=== PATIENT | male | born 1965 | race Caucasian/White ===

== ENCOUNTER 2016-04-27 10:36 | Observation (INO) | payer BC ==
[2016-04-27] MEDS ORDERED: Aspirin Low Dose CHEW TAB* 81 MG PO ONE ×2 (10:43→14:11)
--- NOTE | 2016-04-27 11:21 | RAD ---
Indication: Chest pain. Single frontal view of the chest performed at 1112 hours was reviewed. Comparison is made with previous exam dated May 08, 2009. No mediastinal shift is noted. Heart is of normal size and configuration. Lung cid appear clear. No significant change is noted since previous exam. IMPRESSION: NO ACTIVE CARDIOPULMONARY DISEASE IS NOTED.
[2016-04-27 11:34] LABS: Hematocrit 47 % (42-52); Mean Corpuscular HGB Conc 34 g/dl (31-36); Mean Corpuscular Hemoglobin 33 pg (27-31); Mean Corpuscular Volume 96 fL (80-94); Mean Platelet Volume 8 um3 (7.4-10.4); Red Blood Count 4.87 10^6/ul (4.0-5.4); Red Cell Distribution Width 14 % (10.5-15); White Blood Count 8.1 10^3/ul (3.5-10.8)
[2016-04-27 11:49] LABS: Albumin 4.6 g/dL (3.2-5.2); BUN/Creatinine Ratio 18.1 (8-20); Calcium 9.6 mg/dL (8.6-10.3); EGFR Non-African American 115.1 (>60); Globulin 2.7 g/dL (2-4); Potassium 4.8 mmol/L (3.5-5.0); Total Bilirubin 0.4 mg/dL (0.2-1.0); Total Protein 7.3 g/dL (6.4-8.9); Troponin I 0.02 ng/mL (<0.04)
[2016-04-27] MEDS ORDERED: Albuterol HFA INHALER* 8 gm MDI INH PRN (13:15)
[2016-04-27] MEDS ORDERED: Albuterol 2.5 MG/3 ML NEB.SOL* (0.083%) INH ONE (13:16)
[2016-04-27 13:35] LABS: Magnesium 2.1 mg/dL (1.9-2.7)
[2016-04-27 13:45] LABS: TSH (Thyroid Stimulating Horm) 2.09 mcIU/mL (0.34-5.60)
[2016-04-27] MEDS: Hydrochlorothiazide TAB* 25 MG PO SCH (13:50)
[2016-04-27] MEDS: Enoxaparin(*) 40 MG/0.4 ML SYR SUBCUT SCH (13:50)
[2016-04-27] MEDS: Lisinopril TAB* 10 MG PO SCH (13:51)
[2016-04-27] MEDS ORDERED: Lisinopril/HCTZ 10/12.5(NF) TAB PO SCH (14:00)
[2016-04-27] MEDS ORDERED: Aspirin Low Dose CHEW TAB* 81 MG PO SCH ×2 (14:00→14:08)
--- NOTE | 2016-04-27 22:56 | HP ---
HISTORY AND PHYSICAL: DATE OF ADMISSION: 04/27/15 PROVIDER: Clara Reed NP ATTENDING PHYSICIAN: Dr. Heber Anders * (as dictated by Clara Reed NP). PRIMARY CARE PHYSICIAN: Dr. Marvel Rodarte. CHIEF COMPLAINT: Chest pain. HISTORY OF PRESENT ILLNESS: Mr. Cornell is a 51-year-old male patient who presented to the ED for evaluation of chest pain that he states has been occurring intermittently over the past couple of weeks. He states that the onset was spontaneous and occurred approximately 2 weeks ago. He described the pain as being in his left sternum and it feels like pressure. The pain does radiate to his left arm and last for approximately a couple of minutes up to half an hour. He says it often wakes him from sleep in the morning and could not find any difference of pattern to the pain. He was treating the pain with Pepto, which helped initially, but stopped helping since then. He states that it does get a little bit better with some deep breathing or if he props his head up; however, these techniques have not been helping as of late. Accompanying symptoms include nausea, heartburn, diaphoresis, shortness of breath, and abdominal pain and gas in the stomach. He denies any orthopnea, activity intolerance, or leg edema. He denies any fever, chills, or recent illnesses. He does report shortness of breath with exertion, which he attributes to his COPD and history of smoking. He does report chronic feeling of tingling with numbness in his feet. PAST MEDICAL HISTORY: Significant for: 1. Hypertension. 2. COPD. 3. 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 4. History of degenerative disk disease. PAST SURGICAL HISTORY: Includes: 1. C4-C5 fusion. 2. Left hip replacement in 2009. 3. Right hip replacement in 2004. HOME MEDICATIONS: Include: 1. Albuterol inhaler 2 puffs inhaled q.6 hours p.r.n. 2. Aspirin 81 mg daily. 3. Pepto-Bismol 525 mg daily p.r.n. ALLERGIES: Include PREDNISONE. The patient states that osteonecrosis of the hips occurred with the use of this medication. FAMILY HISTORY: Unobtainable. The patient is adopted and is unaware of his family history. SOCIAL HISTORY: He reports smoking since the age of 20 and smokes approximately one to one and a half packs per day. He reports occasional alcohol use, but then states that he usually drinks 1 or 2 cans of beer before dinner. He denies any illicit drug use. 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 He lives with his and two dogs. His , Remedios Cornell, is his surrogate decision maker and healthcare proxy. REVIEW OF SYSTEMS: A 14-point review of systems was completed. All pertinent positives and negatives are included in the HPI. All those not mentioned are negative. PHYSICAL EXAMINATION GENERAL: Mr. Cornell is a 51-year-old male patient who is lying back in ED stretcher. He is in no acute distress. VITAL SIGNS: Temperature 97.2, heart rate 84, respiratory rate 16, blood pressure 160/89, and O2 saturation is 95% on room air. HEENT: Head is atraumatic and normocephalic. Face is symmetrical. Pupils are equal, round, and reactive to light. Sclerae anicteric. Extraocular movements are intact. External ears and nose are normal. Oral mucosa appears moist. NECK: Neck is supple. No lymphadenopathy appreciated. No JVD noted. RESPIRATORY: Lungs are clear to auscultation. There is no accessory muscle use. CARDIAC: S1, S2 heart sounds. Regular rate and rhythm. No murmurs, rubs, or gallops. ABDOMEN: Soft, nontender, nondistended. Bowel sounds are present times all 4 quadrants. EXTREMITIES: The patient does not have any lower extremity edema. Distal pulses are 2+ bilaterally. MUSCULOSKELETAL: The patient has full range of motion. There is no clubbing or cyanosis. NEURO: Cranial nerves II through XII are grossly intact. The patient is able to move all extremities. Sensation is intact to light touch in the lower extremities. PSYCH: He is alert and oriented x3. His affect is appropriate. SKIN: Limited assessment, but skin appears to be grossly intact. DIAGNOSTIC STUDIES/LAB DATA: CBC: WBC 8.1, hemoglobin 16, hematocrit 47, platelet count 215. CMP: Sodium 134, potassium 4.8, chloride 100, carbon dioxide 26, BUN 13, creatinine 0.72, glucose 118. Hemoglobin A1c 5.4. Lactic acid 2.0, calcium 9.6, magnesium 2.1. Total bilirubin 0.4, AST 21, ALT 35, alk phos 58. Troponin 0.02. Albumin 4.6. TSH 2.09. Chest x-ray, impression reads no active cardiopulmonary disease is noted. EKG showed sinus arrhythmia. There is some minimal ST depression noted in leads II and aVF. There are no old EKGs for review. ASSESSMENT AND PLAN: Mr. Cornell is a 51-year-old male patient with a past medical history of chronic obstructive pulmonary disease, hypertension, tobacco use, and degenerative disk disease, who presents to the ED today for evaluation of chest pain. This has been ongoing for at least 2 weeks. We will admit him to OBV status to the telemetry floor. The plan is as follows: 1. Chest pain. Rule out acute coronary syndrome, admit to telemetry. The patient's BOOGIE score is approximately 2. We are unable to obtain his family history due to his being adoptive; however, given nature of his complaints and risk factors, we will have the patient undergo a stress test in the morning. He will be NPO after midnight. At this time, he is currently chest pain free. We will continue to monitor this. Additionally, we will trend his EKGs and troponins. We have put him on a heart healthy diet. We will check lipid profile in the morning. 2. History of hypertension. Here in the ED, the patient is hypertensive. He states that he was formerly on lisinopril and hydrochlorothiazide combination tablet; however, he became lost to follow up with his PCP and this has not be continued. He is open to restarting his medication while he is here. I will reorder his lisinopril/hydrochlorothiazide tablet in order to keep the patient' s blood pressure controlled so that he may undergo the stress test. 3. Chronic obstructive pulmonary disease. Continue p.r.n. albuterol. The patient does not appear to be in acute exacerbation. 4. FEN. The patient is ordered a heart-healthy diet, will be NPO after midnight. 5. DVT prophylaxis. He is ordered subcu Lovenox. 6. Code status. The patient is a full code. TIME SPENT: Time spent on this admission was approximately 60 minutes, more than half the time was spent [id number] with the patient obtaining history and physical, performing physical examination, and reviewing the plan of care. Plan of care was also reviewed with my attending, Dr. Anders, who is in agreement. CLARA REED NP CC: Dr. Rodarte * [id number]/[facility] #: [id number] BARRIE
[2016-04-28 05:01] LABS: HDL Cholesterol 57.2 mg/dL
[2016-04-28] MEDS ORDERED: Simethicone TAB* 80 MG TAB.CHEW PO ONE (06:00)
[2016-04-28] MEDS: Lisinopril TAB* 10 MG PO SCH (08:12)
[2016-04-28] MEDS: Hydrochlorothiazide TAB* 25 MG PO SCH (08:12)
[2016-04-28] MEDS ORDERED: Aspirin Low Dose CHEW TAB* 81 MG PO SCH (09:00)
[2016-04-28] MEDS ORDERED: Regadenoson* 0.4 MG/5 ML SYRINGE ONE (09:20)
[2016-04-28] MEDS ORDERED: Pantoprazole IV* 40 MG IV SCH (10:00)
[2016-04-28] MEDS: Enoxaparin(*) 40 MG/0.4 ML SYR SUBCUT SCH (14:02)
--- NOTE | 2016-04-28 14:24 | RAD ---
Edited for charges. INDICATION: Chest pain. COMPARISON: Comparison is made with a prior chest x-ray study from April 27, 2016. Technique: A single day myocardial perfusion stress study was performed. Initially the resting study was performed. The patient was given an intravenous injection of 10.8 mCi of technetium 99m tetrofosmin and and the heart was imaged in multiple projections. The patient returned later in the day and under the direction of Dr. Barragan, the patient was given intervenous injection of Lexiscan. Subsequently the patient was given intravenous injection of 24.5 mCi of technetium 99m tetrofosmin and the heart was imaged in multiple projections. Images were reconstructed in the axial, sagittal and coronal planes and in a 3- D format. FINDINGS: There appears to be normal wall motion and myocardial thickening. The left ventricular ejection fraction was calculated to be 60%. Review of the images demonstrates a moderate to large area of decreased activity on the post pharmacologic stress images in the inferior wall which appears normal on the resting set of images. In addition there is elevation of the transient ischemic dilatation ratio which is 1.25. The results of this exam were called to the patient's nurse practitioner. IMPRESSION: FINDINGS SUGGESTIVE OF A MODERATE TO LARGE AREA OF ISCHEMIC CHANGE IN THE INFERIOR WALL. ASSESSMENT: High risk. Based on imaging criteria from ACC/AHA 2002 Guideline Update for the Management of Patients With Chronic Stable Angina Table 23. Noninvasive Risk Stratification. MTDD
--- NOTE | 2016-04-28 15:31 | PN ---
Subjective Date of Service: 04/28/16 Interval History: Patient seen and examined at bedside. He denies CP but states he has been having heartburn that has improved with simethicone and pantoprazole. He denies SOB, abd pain, n/v, diaphoresis, left arm tingling/numbness. He is motivated to improve his health and is interested in ways to reduce his salt intake. He is receptive to smoking cessation teaching. Telemetry: SR 70s-80s Family History: Unchanged from Admission Social History: Unchanged from Admission Past Medical History: Unchanged from Admission Objective Active Medications: Albuterol (Ventolin Hfa Inhaler*) 2 puff INH Q6H PRN PRN Reason: WHEEZING Aspirin (Aspirin Low Dose Tab*) 81 mg PO DAILY [facility] Last Admin: 04/28/16 08:12 Dose: 81 mg Atorvastatin Calcium (Lipitor*) 40 mg PO 1700 [facility] Enoxaparin Sodium (Lovenox(*)) 40 mg SUBCUT Q24H [facility] Last Admin: 04/28/16 14:02 Dose: Not Given Hydrochlorothiazide (Hydrodiuril Tab*) 12.5 mg PO DAILY [facility] Last Admin: 04/28/16 08:12 Dose: 12.5 mg Lisinopril (Prinivil Tab*) 10 mg PO DAILY [facility] Last Admin: 04/28/16 08:12 Dose: 10 mg Pantoprazole Sodium (Protonix Iv*) 40 mg IV DAILY [facility] Last Admin: 04/28/16 14:02 Dose: Not Given Vital Signs 04/27/16 04/27/16 04/27/16 15:57 17:03 19:57 Temperature 97.9 F 98.1 F Pulse Rate 97 90 88 Respiratory 14 16 16 Rate Blood Pressure 123/69 125/80 (mmHg) O2 Sat by Pulse 95 94 93 Oximetry 04/27/16 04/28/16 04/28/16 20:00 00:18 03:36 Temperature 97.8 F Pulse Rate 90 90 Respiratory 16 20 18 Rate Blood Pressure 127/75 (mmHg) O2 Sat by Pulse 97 92 Oximetry 04/28/16 04/28/16 04:25 07:32 Temperature 97.6 F 98.1 F Pulse Rate 83 73 Respiratory 20 16 Rate Blood Pressure 134/69 146/87 (mmHg) O2 Sat by Pulse 95 97 Oximetry Oxygen Devices in Use Now: None Appearance: Male patient, lying in bed, in NAD Eyes: PERRLA Ears/Nose/Mouth/Throat: Clear Oropharnyx, Mucous Membranes Moist Neck: NL Appearance and Movements; NL JVP Respiratory: Symmetrical Chest Expansion and Respiratory Effort, Clear to Auscultation - expiratory wheezes, prolonged expiratory phse Cardiovascular: NL Sounds; No Murmurs; No JVD, RRR Abdominal: NL Sounds; No Tenderness; No Distention Extremities: No Edema Skin: No Rash or Ulcers Neurological: Alert and Oriented x 3 Lines/Tubes/Other Access: Clean, Dry and Intact Peripheral IV Nutrition: Taking PO's Result Diagrams: 04/27/16 11:19 04/27/16 11:19 Additional Lab and Data: Lab Results 04/27/16 Range/Units 11:19 WBC 8.1 (3.5-10.8) 10^3/ul RBC 4.87 (4.0-5.4) 10^6/ul Hgb 16.0 (14.0-18.0) g/dl Hct 47 (42-52) % MCV 96 H (80-94) fL MCH 33 H (27-31) pg MCHC 34 (31-36) g/dl RDW 14 (10.5-15) % Plt Count 215 (150-450) 10^3/ul MPV 8 (7.4-10.4) um3 Neut % (Auto) 73.1 (38-83) % Lymph % (Auto) 18.6 L (25-47) % [place] % (Auto) 6.5 (1-9) % Eos % (Auto) 0.7 (0-6) % Baso % (Auto) 1.1 (0-2) % Absolute Neuts (auto) 5.9 (1.5-7.7) 10^3/ul Absolute Lymphs (auto) 1.5 (1.0-4.8) 10^3/ul Absolute Monos (auto) 0.5 (0-0.8) 10^3/ul Absolute Eos (auto) 0.1 (0-0.6) 10^3/ul Absolute Basos (auto) 0.1 (0-0.2) 10^3/ul Absolute Nucleated RBC 0.01 10^3/ul Nucleated RBC % 0.1 Assess/Plan/Problems-Billing Assessment: Mr. Cornell is a 51 yo male with a PMH of HTN, COPD, DDD, and avascular necrosis who presented to the ED on 04/27/16 with intermittent chest pain x 2 weeks. - Patient Problems (1) Chest pain Code(s): R07.9 - CHEST PAIN, UNSPECIFIED Comment: Troponins negative, non-specific ST changes on EKG Nuclear medicine stress test showed concern for moderate to large area of ischemia to inferior wall. Appreciate interventional cardiology consult. Cardiac catheterization not recommended at this time. Patient recommended to minimize risk factors, such as smoking cessation, diet. Cardiology recommends addition of cardizem CD 120 mg and close follow-up with PCP. No further cardiology follow-up needed at this time, unless symptoms worsen. (2) HTN (hypertension) Code(s): I10 - ESSENTIAL (PRIMARY) HYPERTENSION Comment: SBP 120s-160s. Continue lisinopril/HCTZ. Start diltiazem CD. (3) COPD (chronic obstructive pulmonary disease) Code(s): J44.9 - CHRONIC OBSTRUCTIVE PULMONARY DISEASE, UNSPECIFIED Comment: Stable. Continue albuterol prn. (4) HLD (hyperlipidemia) Code(s): E78.5 - HYPERLIPIDEMIA, UNSPECIFIED Comment: With elevated cholesterol, trigylcerides, LDL. Start atorvastatin. Heart healthy diet - teaching provided. (5) GERD (gastroesophageal reflux disease) Code(s): K21.9 - GASTRO-ESOPHAGEAL REFLUX DISEASE WITHOUT ESOPHAGITIS Comment : Patient will benefit from GI workup as an outpatient. Continue PPI. (6) DVT prophylaxis Code(s): PZB4245 - Comment: SQ Lovenox Status and Disposition: OBV admit. D/c to home when medically stable.
[2016-04-28 16:00] VITALS: BP 126/75
[2016-04-28] MEDS ORDERED: Atorvastatin* 40 MG TAB PO SCH (17:00)
--- NOTE | 2016-04-28 19:35 | CONS ---
CARDIOLOGY CONSULT: DATE OF CONSULT: 04/28/16 INDICATION FOR THE PROCEDURE: Asked by Ms. Anna NP, the hospitalist service, to see the patient for abnormal nuclear test with presentation of chest discomfort. HISTORY OF PRESENT ILLNESS: The patient is a pleasant 51-year-old gentleman with no prior known cardiac history. Specifically, he denies any history of myocardial infarction, congestive heart failure, or significant heart rhythm disturbance. The patient was in his usual state of health a couple of weeks ago and noted his symptoms of chest discomfort started after a 7 p.m. taco dinner he had. He then went to bed that night and woke up with burning epigastric discomfort with a positive acid taste in his mouth and gas. He ended up taking antacids and it got better. He stated that at times it would radiate up toward his throat with an acid taste in his throat as mentioned earlier, but also he noticed occasionally his left arm would have some discomfort. Interestingly, it did not occur with each episode of the epigastric discomfort. A few days later, he again ate a dinner and then laid down and developed the same symptoms. 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 He could carry things up and down the stairs. He could do exertional work without provoking this symptom. The day after he had a second episode at night, he went to [facility] and then noted feeling the same type of discomfort back at work. If he got up and walked around, he stated he actually felt better. From that time on, he almost noted every night developing the symptoms waking him up in the middle of the night. This past Wednesday night until Wednesday morning, he woke up at 4 a.m. and it just would not go away, would come back despite him taking the antacids. He would initially get relief and then come back. He eventually presented to the emergency room. In the emergency room, his laboratory results had revealed a troponin of 0.02, repeated at 0.03 and 0.03. He had a hemoglobin and hematocrit of 16 and 47. In the emergency room also, he was noted to be markedly hypertensive at 173/100. He was subsequently admitted to the hospital for further workup. His EKG on admission had revealed sinus rhythm, heart rate 88, with nonspecific ST segment changes, but no definitive ST-T wave changes for ischemia. He was noted on the rhythm strip of the EKG to have a slightly accelerated rhythm in the 90s from perhaps a different atrial focus with different T-wave morphology noted. He eventually underwent a regadenoson stress test during which time there were no EKG changes of ischemia, no significant symptoms. There were no hemodynamic changes as well. The nuclear images were interpreted by the radiologist describing a moderate to large area of ischemia to the inferior wall, but interestingly, after reviewing these images with Dr. Seven Barragan, dining server board certified in Nuclear Medicine, we both agreed that there seemed to be attenuation issues on the stress image. There was not profound ischemia seen as there was clearly uptake there, which may have been managed services sales consultant slightly than the opposite wall, more related to interference. The patient noted that since he has been in the hospital and has been treated with antacids as well as pantoprazole, he has not had significant symptoms. Of note, for the past 5 years, he has not been taking his medicine for hypertension as he could not get it refilled and he only was on a baby aspirin 81 mg a day. The patient's cardiac risk factors include a 9-year history of hypertension that he is aware of. He did not know he has an elevated cholesterol. He does not have diabetes. He smokes 1 to 1-1/2 packs a day for 30 years and he was adopted and does not know his family history. PAST MEDICAL HISTORY: Includes: 1. Hypertension. 2. Chronic obstructive lung disease. 3. Avascular necrosis of both hips. 4. Degenerative disk disease. PAST SURGICAL HISTORY: Includes: 1. C4-C5 fusion. 2. Hip replacement, 2009. 3. Right hip replacement in 2004. CURRENT MEDICATIONS: In the hospital include: 1. Albuterol inhaler. 2. Aspirin 81 mg. 3. Pravastatin 40 mg a day. 4. Lovenox 40 mg subcu daily. 5. Hydrochlorothiazide 12.5 a day. 6. Lisinopril 10 mg a day. 7. Pantoprazole 40 mg IV daily. ALLERGIES: He is supposedly allergic to PREDNISONE. He developed osteonecrosis of the hips with the use of this medication. REVIEW OF SYSTEMS: As per the H and P with no additional changes. PHYSICAL EXAMINATION: When I see him now reveals vital signs most recently blood pressure 146/87, pulse is 73, respirations are 16, O2 saturation 97% on room air. Neck is supple. No increased JVP. Carotid with good upstrokes and volume without bruits. Conjunctivae are pink. Sclerae clear. Lungs reveal no accessory muscle usage. There is fair excursion. There is slight expiratory wheeze bilaterally with no active rales or rhonchi. Heart reveals no physical heaves. No palpable heaves or thrills. Heart sounds are quite distant in nature and no significant systolic or diastolic murmur. Abdomen is obese, soft , nontender, without organomegaly. Extremities are without clubbing, cyanosis, or keith pitting edema. Peripheral pulses are intact. Femoral pulse present without bruit. Neuro: The patient is alert and oriented with normal mentation. Musculoskeletal: The patient with normal gait. Psychiatric: The patient with normal affect. DIAGNOSTIC STUDIES/LAB DATA: Electrocardiogram from the emergency room as mentioned earlier revealed sinus rhythm with heart rate 83, normal NH, QRS, and QT interval with minimal nonspecific ST-T wave changes. The rhythm strip showed a slightly accelerated atrial focus, which may represent a wandering atrial pacemaker site. Repeat EKG from today revealed sinus rhythm, heart rate 70 with no significant change. Laboratory results reveal hemoglobin and hematocrit of 16 and 47 with platelet count of 215,000, white blood count 8100. Sodium 134, potassium 4.8, chloride 100, bicarb 26, BUN and creatinine of 13 and 0.7, lactic acid 2.0, hemoglobin A1c 5.4. SGOT 21, SGPT 35, and troponins were as mentioned, 0.02, 0.03, 0.03. Triglycerides 245, total cholesterol 261, LDL 155, HDL 57. TSH is 2.09. OVERALL ASSESSMENT: Alan presents with clearly atypical sounding chest discomfort that by history do not sound of an ischemic nature. He at this point in time does not have a troponin pattern suggestive of an acute coronary syndrome. His nuclear images in all honesty did not appear to be ischemic to my review or Dr. Seven Barragan's review as well. At this point in time, I believe aggressive risk factor management is paramount in aggressive treatment for gastroesophageal reflux and perhaps even possible ulcer disease. Obviously, he has not had good control of his blood pressure and at some point, an echocardiogram will be helpful just to see his overall wall thickness to see to what degree the blood pressure is not being controlled. That can easily be performed as an outpatient through his primary care doctor. Additional medications that might be helpful will be the addition of a calcium channel paty such as Cardizem to the lisinopril to help blood pressure control, but also help any potential rhythm disturbance as he appears to have the potential for chaotic atrial rhythm and he has underlying chronic obstructive pulmonary disease. This will, therefore, provide dual therapy, perhaps even triple therapy if there is some degree of coronary artery disease, although symptoms do not suggest an unstable coronary syndrome. Thank you very much for asking us to see him and at this point in time, I would not favor proceeding with cardiac catheterization. I did have a lengthy discussion with both him and his that should symptoms change and become more exertionally provoked, he should contact me and I did give him my card. In the meantime, if he had a severe episode, he should not hesitate coming back to the emergency room to have it evaluated rather than staying at home and missing an acute process. I will discuss all of this with the hospitalists involved with the case. Thank you very much for asking us to see him. CC: Marvel Rodarte MD* [id number]/[facility] #: [id number] BARRI[place]
--- NOTE | 2016-04-29 16:34 | DS ---
DISCHARGE SUMMARY: DATE OF ADMISSION: 04/27/16 DATE OF DISCHARGE: 04/28/16 PROVIDER: Clara Reed NP ATTENDING PHYSICIAN: Dr. Heber Anders *(as dictated by Clara Reed NP). PRIMARY CARE PHYSICIAN: Dr. Marvel Rodarte. CONSULTING PHYSICIAN: Dr. Evan Jacome. PRIMARY DISCHARGE DIAGNOSES: 1. Chest pain. 2. Suspect gastroesophageal reflux disease. SECONDARY DISCHARGE DIAGNOSES: 1. Hypertension. 2. Chronic obstructive pulmonary disease. 3. Avascular necrosis of the bilateral hips. 4. History of degenerative disk disease. HOME MEDICATIONS AT DISCHARGE: 1. Pepto-Bismol daily p.r.n. 2. Albuterol inhaler 2 puffs inhaled q. 6 hours p.r.n. 3. Aspirin 81 mg daily. 4. Omeprazole 20 mg daily. This is a new prescription. 5. Zestoretic 01/07.5 one tab daily. This is a new medication. The patient was previously on this medication but had stopped taking it. 6. Diltiazem CD 120 mg daily. This is a new medication. 7. Atorvastatin 40 mg daily. This is a new medication. DIAGNOSTIC TESTING DURING THIS PATIENT'S STAY: Chest x-ray on 04/27/16 shows no active cardiopulmonary disease noted. Nuclear medicine scan from 04/28/16 report, impression: Findings suggestive of [id number] area of ischemic change in the inferior wall. Assessment, high risk. Lipid profile drawn 04/28/16, triglycerides 245, cholesterol 261, LDL 155, HDL 57.2. The patient's hemoglobin A1c is 5.4. His TSH is 2.09. HOSPITAL COURSE OF STAY: For full details, please refer to the H and P provided on 04/27/16. In summary, Mr. Cornell is a 51-year-old male patient with a past medical history as stated above, who presented to the ED for evaluation of chest pain that had been occurring intermittently over a few weeks. The patient did carry risk factors of smoking, obesity, hypertension, and possible family history, although this is unable to be confirmed given his history of adoption. He was admitted to the telemetry unit with BOOGIE score of 2. His troponins remained relatively flat. The patient did report some chest pain that was alleviated with simethicone and pantoprazole while here in the hospital. His EKG showed nonspecific ST changes. He underwent a stress test, which showed concern for an area of ischemia. Dr. Jacome consulted on the patient and expressed his view that the patient had atypical chest discomfort that does not appear to be ischemic in nature. He did personally review the nuclear images and did not feel that they appear to be ischemic. He advised for aggressive risk factor management as well as aggressive treatment for gastroesophageal reflux and potentially even ulcer disease. The patient does carry risk factor for this as well as his smoking and alcohol use. This was all discussed with the patient who is in agreement and receptive to teaching regarding a healthy diet, new medications as well as smoking cessation and decreased use of alcohol. The patient was recommended to have an outpatient echocardiogram and perhaps endoscopy which he can have arranged through his PCP office. Additionally, Dr. Jacome recommended the addition of a calcium channel paty in order to help with blood pressure control and to control rhythm disturbance. This has been prescribed for the patient. I did advise him to take his 2 blood pressure medications separately with his lisinopril in the morning and his Cardizem in the nighttime in order to prevent hypotension and side effects from low blood pressure. He did verbalize understanding of this. Patient denied chest pain at the time of discharge and is receptive to his recommendations. He has been advised to follow up with his PCP as scheduled on May 04 as well as to report to the ER if his chest pain returns and if he has concern for new symptoms. CONCERNS AT DISCHARGE: Mr. Cornell is discharged to home on 04/28/16. DIET: Heart-healthy diet. ACTIVITY: As tolerated. CONDITION: Stable. DISPOSITION: To home. TIME SPENT: Time spent on this discharge was approximately 50 minutes. Again, this is only a brief summary of this patient's hospital course of stay. For full details, please refer to the full medical records. If you have any further questions or need further assistance, please feel free to contact me at . CLARA REED NP CC: Dr. Marvel Rodarte* [id number]/[facility] #: [id number] BARRIE
--- NOTE | 2016-05-18 20:14 | ED ---
Raul Mccabe Matthew, scribed for Zulma Alexandra MD on 04/27/16 at 1200 . HPI Chest Pain - HPI Summary HPI Summary: A 51 y/o male presents to the ED with intermittent chest pain since 2 weeks ago. The pain started after the patient ate spicy tacos. Initially, the pain partially relieved with sitting up and anti acids. However, the pain continued to worsen over the last 2 days, and the pain now radiates to the left arm. The pain mildly worsens with exertion. - History of Current Complaint Chief Complaint: EDChestPainROMI Time Seen by Provider: 04/27/16 11:18 Hx Obtained From: Patient Onset/Duration: Started Weeks Ago, Atraumatic, Still Present Timing: Intermittent Initial Severity: Mild Current Severity: Mild Chest Pain Radiates: Yes Chest Pain Radiates To:: Arm - LT Aggravating Factor(s): Exertion Alleviating Factor(s): Nothing Associated Signs and Symptoms: Positive: Chest Pain, Cough - Allergy/Home Medications Allergies/Adverse Reactions: Allergies Allergy/AdvReac Type Severity Reaction Status Date / Time Prednisone AdvReac Severe See Comment Verified 04/27/16 11:05 Home Medications: Home Medications Albuterol HFA INHALER* [Ventolin HFA Inhaler*] 2 puff INH Q6H PRN 04/27/16 [ History Confirmed 05/04/16] Aspirin Low Dose CHEW TAB* [Aspirin Low Dose TAB*] 81 mg PO DAILY 04/27/16 [ History Confirmed 05/04/16] Bismuth Subsalicylate [Pepto-Bismol Max Strength] 525 mg PO DAILY PRN 04/27/16 [ History Confirmed 05/04/16] PMH/Surg Hx/FS Hx/Imm Hx Cardiovascular History: Reports: Hx Hypercholesterolemia, Hx Hypertension Infectious Disease History: No Infectious Disease History: Denies: Traveled Outside the [place] in Last 30 Days - Family History Known Family History: Positive: Unknown - The patient is adopted - Social History Alcohol Use: Weekly Substance Use Type: Reports: None Smoking Status (MU): Heavy Every Day Tobacco Smoker Review of Systems Constitutional: Negative Eyes: Negative ENT: Negative Positive: Chest Pain Positive: Cough Gastrointestinal: Negative Genitourinary: Negative Musculoskeletal: Negative Skin: Negative Neurological: Negative Psychological: Normal All Other Systems Reviewed And Are Negative: Yes Physical Exam Triage Information Reviewed: Yes Vital Signs On Initial Exam: Initial Vitals Temp Pulse Resp BP Pulse Ox 97.2 F 83 16 168/89 97 04/27/16 11:01 04/27/16 11:01 04/27/16 11:01 04/27/16 11:01 04/27/16 11:01 Vital Signs Reviewed: Yes Appearance: Positive: Well-Appearing, No Pain Distress Skin: Positive: Warm, Skin Color Reflects Adequate Perfusion, Dry Eyes: Positive: EOMI, RISA ENT: Positive: Normal ENT inspection Neck: Positive: Supple, Nontender Respiratory/Lung Sounds: Positive: Breath Sounds Present, Wheezes Cardiovascular: Positive: RRR. Negative: Murmur, Rub Abdomen Description: Positive: Nontender, Soft Bowel Sounds: Positive: Present Musculoskeletal: Positive: Normal, Strength/ROM Intact Neurological: Positive: Normal, Sensory/Motor Intact, Alert, Oriented to Person Place, Time, CN Intact II-III Psychiatric: Positive: Normal, Affect/Mood Appropriate - [place] Coma Scale Coma Scale Total: 15 Diagnostics - Vital Signs Vital Signs Temp Pulse Resp BP Pulse Ox 04/27/16 11:01 97.2 F 83 16 168/89 97 - Laboratory Lab Results: Lab Results 04/27/16 Range/Units 11:19 WBC 8.1 (3.5-10.8) 10^3/ul RBC 4.87 (4.0-5.4) 10^6/ul Hgb 16.0 (14.0-18.0) g/dl Hct 47 (42-52) % MCV 96 H (80-94) fL MCH 33 H (27-31) pg MCHC 34 (31-36) g/dl RDW 14 (10.5-15) % Plt Count 215 (150-450) 10^3/ul MPV 8 (7.4-10.4) um3 Neut % (Auto) 73.1 (38-83) % Lymph % (Auto) 18.6 L (25-47) % [place] % (Auto) 6.5 (1-9) % Eos % (Auto) 0.7 (0-6) % Baso % (Auto) 1.1 (0-2) % Absolute Neuts (auto) 5.9 (1.5-7.7) 10^3/ul Absolute Lymphs (auto) 1.5 (1.0-4.8) 10^3/ul Absolute Monos (auto) 0.5 (0-0.8) 10^3/ul Absolute Eos (auto) 0.1 (0-0.6) 10^3/ul Absolute Basos (auto) 0.1 (0-0.2) 10^3/ul Absolute Nucleated RBC 0.01 10^3/ul Nucleated RBC % 0.1 Result Diagrams: 04/27/16 11:19 04/27/16 11:19 Lab Statement: Any lab studies that have been ordered have been reviewed, and results considered in the medical decision making process. - Radiology CXR Xray Interpretation: No Acute Changes Radiology Interpretation Completed By: Radiologist - EKG 10:38 Cardiac Rate: NL - 83 bpm EKG Rhythm: Sinus Rhythm Chest Pain Course/Dx - Diagnoses Provider Diagnoses: Chest pain - Provider Notifications Discussed Care Of Patient With: Dr. Arias (Hospitalist) at 12:04 -- Notified of patient's history and will admit the pateint. Discharge - Discharge Plan Condition: Stable Disposition: ADMITTED TO [facility] documentation as recorded by the Raul ahn Matthew accurately reflects the service I personally performed and the decisions made by , Zulma Alexandra MD.
== END 2016-04-28 17:19 | disposition home or self-care (01) ==
LOC: ED 10:36 → MEDTELE 12:02
PROVIDERS: ADMIT Hospitalist; ATTEND Internal Medicine
DX: R07.9 Chest pain, unspecified (principal); I10 Essential (primary) hypertension; J44.9 Chronic obstructive pulmonary disease, unspecified; I49.9 Cardiac arrhythmia, unspecified; R06.02 Shortness of breath; K21.9 Gastro-esophageal reflux disease without esophagitis; E78.5 Hyperlipidemia, unspecified; Z79.899 Other long term (current) drug therapy; Z88.8 Allergy status to other drugs, medicaments and biological substances; F17.210 Nicotine dependence, cigarettes, uncomplicated
CPT/HCPCS: 36415; 71010; 78452; 80053; 80061; 83036; 83605; 83735; 84443; 84484; 85025; 93005; 93017; 94760; 99282; 99406; A9270-GY; A9502; G0378; J1650; J2785

== ENCOUNTER 2016-05-04 10:22 | Inpatient (IN) | payer BC ==
[2016-05-04] MEDS ORDERED: Aspirin Low Dose CHEW TAB* 81 MG PO ONE (11:08)
[2016-05-04 11:29] LABS: Hematocrit 47 % (42-52); Hemoglobin 16.2 g/dl (14.0-18.0); Mean Corpuscular HGB Conc 34 g/dl (31-36); Mean Corpuscular Hemoglobin 33 pg (27-31); Mean Corpuscular Volume 95 fL (80-94); Mean Platelet Volume 8 um3 (7.4-10.4); Red Blood Count 4.96 10^6/ul (4.0-5.4); Red Cell Distribution Width 13 % (10.5-15); White Blood Count 10.6 10^3/ul (3.5-10.8)
--- NOTE | 2016-05-04 11:35 | RAD ---
Indication: Chest pain, shortness of breath. Single frontal view of the chest performed at 1115 hours was reviewed. Comparison is made with previous exam dated April 27, 2016. No mediastinal shift is noted. Heart is of normal size and configuration. Lung cdi appear clear. No changes noted since prior exam. IMPRESSION: NO ACTIVE CARDIOPULMONARY DISEASE IS NOTED.
--- NOTE | 2016-05-04 11:35 | ED ---
HPI Chest Pain - HPI Summary HPI Summary: 51 M presents with chest pain since this morning. He has had intermittent chest pain for a week. Today the pain last longer and was more intense. He admits to shortness of breath and radiation down the left arm when the pain was the most intense. He is still currently having central chest pain but the SOB and radiation of the pain has disappeared. He was admitted last week an a stress test and nuclear scan was performed. He denies any abdominal pain, acid reflux, nausea, or vomiting. He was sent home with cholesterol, bp, and GERD medication. His pain is the same as last week when he was admitted. - History of Current Complaint Chief Complaint: EDChestWallPain Time Seen by Provider: 05/04/16 11:21 Pain Intensity: 8 - Additional Pertinent History Primary Care Physician: LIZANDRO - Allergy/Home Medications Allergies/Adverse Reactions: Allergies Allergy/AdvReac Type Severity Reaction Status Date / Time Prednisone AdvReac Severe See Comment Verified 04/27/16 11:05 PMH/Surg Hx/FS Hx/Imm Hx Endocrine/Hematology History: Denies: Hx Diabetes Cardiovascular History: Reports: Hx Angina, Hx Hypertension Denies: Hx Coronary Artery Disease, Hx Hypercholesterolemia, Hx Myocardial Infarction, Hx Valvular Heart Disease Respiratory History: Reports: Hx Chronic Obstructive Pulmonary Disease (COPD) Denies: Hx Asthma - Surgical History Surgery Procedure, Year, and Place: Right hip replacement Infectious Disease History: No Infectious Disease History: Denies: Traveled Outside the [place] in Last 30 Days - Family History Known Family History: Positive: Unknown - adopted - Social History Alcohol Use: Daily Alcohol Amount: 2-3 drinks weeks nights, more on the week ends Substance Use Type: Reports: None Smoking Status (MU): Heavy Every Day Tobacco Smoker Review of Systems Negative: Fever Positive: Chest Pain Positive: Shortness Of Breath, Cough Negative: Abdominal Pain, Vomiting, Nausea Negative: Weakness All Other Systems Reviewed And Are Negative: Yes Physical Exam Triage Information Reviewed: Yes Vital Signs On Initial Exam: Initial Vitals Temp Pulse Resp BP Pulse Ox 96.3 F 94 20 167/92 94 05/04/16 10:23 05/04/16 10:23 05/04/16 10:23 05/04/16 10:23 05/04/16 10:23 Vital Signs Reviewed: Yes Appearance: Positive: Well-Appearing Skin: Positive: Warm, Dry. Negative: Diaphoretic Head/Face: Positive: Normal Head/Face Inspection Eyes: Positive: Normal, Conjunctiva Clear ENT: Positive: Normal ENT inspection, Pharynx normal, TMs normal Respiratory/Lung Sounds: Positive: Clear to Auscultation, Breath Sounds Present , Other - no reproducible test pain Cardiovascular: Positive: Normal, RRR Abdomen Description: Positive: Nontender, Soft Bowel Sounds: Positive: Present - [place] Coma Scale Coma Scale Total: 15 Diagnostics - Vital Signs Vital Signs Temp Pulse Resp BP Pulse Ox 05/04/16 11:00 88 15 138/74 96 05/04/16 10:52 88 95 05/04/16 10:49 121/71 05/04/16 10:23 96.3 F 94 20 167/92 94 - Laboratory Lab Results: Lab Results 05/04/16 Range/Units 11:10 WBC 10.6 (3.5-10.8) 10^3/ul RBC 4.96 (4.0-5.4) 10^6/ul Hgb 16.2 (14.0-18.0) g/dl Hct 47 (42-52) % MCV 95 H (80-94) fL MCH 33 H (27-31) pg MCHC 34 (31-36) g/dl RDW 13 (10.5-15) % Plt Count 237 (150-450) 10^3/ul MPV 8 (7.4-10.4) um3 Neut % (Auto) 74.0 (38-83) % Lymph % (Auto) 15.8 L (25-47) % [place] % (Auto) 8.8 (1-9) % Eos % (Auto) 0.6 (0-6) % Baso % (Auto) 0.8 (0-2) % Absolute Neuts (auto) 7.8 H (1.5-7.7) 10^3/ul Absolute Lymphs (auto) 1.7 (1.0-4.8) 10^3/ul Absolute Monos (auto) 0.9 H (0-0.8) 10^3/ul Absolute Eos (auto) 0.1 (0-0.6) 10^3/ul Absolute Basos (auto) 0.1 (0-0.2) 10^3/ul Absolute Nucleated RBC 0 10^3/ul Nucleated RBC % 0 Result Diagrams: 05/04/16 11:10 05/04/16 11:10 Lab Statement: Any lab studies that have been ordered have been reviewed, and results considered in the medical decision making process. - Radiology chest Xray Interpretation: No Acute Changes Radiology Interpretation Completed By: Radiologist - EKG No standard instances Cardiac Rate: NL EKG Rhythm: Sinus Rhythm ST Segment: Normal Ectopy: None EKG Comparison: No Significant Change Re-Evaluation - Re-Evaluation First Eval Re-Evaluation Time: 12:58 Change: Improved Comment: patient pain is improved Chest Pain Course/Dx - Course Course Of Treatment: 51M presents with intermittent chest pain for a week. started 2am today with SOB and left arm pain. pain lasted longer today and was more intense. still currently having chest pain just not as intense as earlier today. says pain is the same as when was admitted last week. chest pain noreproducible on exam, improved with ASA and nitro, EKG normal, troponin and lactic elevated, gave fluids, hospitalist will admit, 2nd troponin 3 - Chest Pain Differential Diagnosis/HQI/PQRI: Acute [place], ACS, CHF, Lower Respiratory Infection - Diagnoses Provider Diagnoses: Chest pain, HTN (hypertension), COPD (chronic obstructive pulmonary disease) - Provider Notifications Discussed Care Of Patient With: dr gordon Time Discussed With Above Provider: 11:53 - get 2nd troponin Discharge - Discharge Plan Condition: Stable Disposition: ADMITTED TO [facility]
[2016-05-04 11:44] LABS: Albumin 4.8 g/dL (3.2-5.2); BUN/Creatinine Ratio 19.6 (8-20); Calcium 9.7 mg/dL (8.6-10.3); EGFR African American 104.9 (>60); EGFR Non-African American 81.6 (>60); Globulin 2.7 g/dL (2-4); Potassium 4.7 mmol/L (3.5-5.0); Total Protein 7.5 g/dL (6.4-8.9)
[2016-05-04 11:59] LABS: Troponin I 1.74 ng/mL (<0.04)
[2016-05-04] MEDS ORDERED: Nitroglycerin TAB 0.4 MG* 0.4 MG TAB SL ONE ×2 (12:09→14:59)
[2016-05-04 12:21] LABS: Total Bilirubin 0.6 mg/dL (0.2-1.0)
[2016-05-04] MEDS: NS 0.9% 1000 ML* 2,000 ML IV ONE ×2 (12:36→13:58)
[2016-05-04] MEDS ORDERED: Metoprolol Tartrate TAB* 25 MG PO ONE (15:00)
[2016-05-04] MEDS ORDERED: Atorvastatin* 80 MG TAB PO ONE ×2 (15:12→20:30)
[2016-05-04] MEDS ORDERED: Heparin DRIP 25,000 UNITS(*) 25,000 UNITS/500 ML BAG IVPB SCH (15:15)
[2016-05-04] MEDS ORDERED: Albuterol/Ipratropium NEB.SOL* Albuterol 2.5 MG/Ipratropium 0.5 MG 3 ML INH PRN (15:20)
[2016-05-04] MEDS ORDERED: Acetaminophen TAB* 325 MG PO PRN (15:21)
[2016-05-04] MEDS ORDERED: Nicotine Inhaler* 10 MG AMP INH PRN (15:23)
[2016-05-04] MEDS ORDERED: Heparin VIAL(*) 5000 UNITS/ML VIAL (FIVE THOUSAND) IV SCH (16:00)
[2016-05-04] MEDS ORDERED: Enoxaparin(*) 100 MG/ML SYR SUBCUT ONE (18:00)
[2016-05-04] MEDS: Diltiazem CD CAP* 120 MG PO SCH (18:27)
[2016-05-04] MEDS ORDERED: Nicotine PATCH 21 MG/24 HR* PATCH ONE (18:31)
--- NOTE | 2016-05-04 19:26 | HP ---
ADMISSION HISTORY AND PHYSICAL: DATE OF ADMISSION: 05/04/16 PRIMARY CARE PROVIDER: Dr. Rodarte. HEALTHCARE PROXY: His , Saida. CODE STATUS: Full, discussed with the patient. CHIEF COMPLAINT: Chest pain. SOURCE OF INFORMATION: History obtained from interview with the patient, his , as well as review of past medical records. RELIABILITY: Good. HISTORY OF PRESENT ILLNESS: This is a 51-year-old man, recent hospital stay at [facility] from 04/27/16 to 04/28/16, presenting with 2 weeks of chest pain, found with a high- risk adenosine stress test with nuclear imaging, re-interpreted by cardiology team to be less likely high risk with chest pain thought secondary to GERD symptoms in the setting of negative cardiac enzymes and nonischemic EKG. The patient had been experiencing 2 weeks of chest pain prior to his previous stay and chest pain had continued since his discharge on the , most commonly occurring in the managed care director, typically would last at most for 5 minutes occurring many times over an hour and a half, not worse with exertion , but better with sitting up or drinking milk. The night of presentation, he woke up around 3 a.m. with worsening chest pain that was described as substernal chest pain or pressure, associated with feeling of lightheadedness, nausea, and gagging that lasted about an hour, not associated with palpitations , loss of consciousness. He presented to the emergency room where he was found to have an elevated troponin and hospitalist service was consulted for admission. PAST MEDICAL HISTORY: Hypertension, hyperlipidemia, COPD, history of avascular necrosis in bilateral hips while on steroids, degenerative joint disease, C4-C5 fusion in 2001, hip replacement in 2009, right hip replacement in 2004. MEDICATIONS: Unchanged since recent discharge on the include: 1. Albuterol inhaler 2 puffs every 6 hours as needed. 2. Aspirin 81 mg daily. 3. Omeprazole 20 mg daily. 4. Zestoretic 10/12.5 mg daily. 5. Diltiazem CD 120 mg daily. 6. Atorvastatin 40 mg daily. ALLERGIES: Listed to PREDNISONE in the setting of avascular necrosis. FAMILY HISTORY: He is adopted and unknown. SOCIAL HISTORY: Shz-ljk-v-half packs per day x30 years, still active smoker. History of moderate alcohol. No illicit's. REVIEW OF SYSTEMS: As per HPI. Otherwise, all other systems negative. PHYSICAL EXAMINATION GENERAL: Sitting up in bed, interactive, pleasant, in no apparent distress. VITAL SIGNS: When seen by this author 149/62, heart rate 85, T-max 96.3, 96% on room air. HEENT: Oropharynx is clear. Moist mucous membranes. Sclerae anicteric. NECK: Non-elevated JVD. No lymphadenopathy. No supraclavicular or cervical lymphadenopathy. LUNGS: Have symmetric airway expansion with diffuse wheeze throughout. HEART: He has distant heart sounds. Regular rate and rhythm. Positive S1 and S2. ABDOMEN: Soft, nontender, nondistended. EXTREMITIES: Warm and well perfused. No clubbing, cyanosis, or edema. NEUROLOGIC: He is alert and oriented x3. His cranial nerves are intact. DIAGNOSTIC STUDIES/LAB DATA: Labs reviewed: Notable for lactic acid 2.2. Troponin I 1.74 increasing to 3.07. BNP of 39. White blood cell count 10.6, platelets 237. BUN 19, creatinine 0.97. Data reviewed: Chest x-ray, impression: "No active cardiopulmonary disease." EKG: Normal sinus rhythm, ventricular rate of 80, normal limit axis and intervals, good R-wave progression, nonpathologic Q waves in III and aVF, approximately 1-mm ST depression in V4 and V5. ASSESSMENT AND PLAN: This is a 51-year-old man, past medical history of hypertension, hyperlipidemia, active tobacco use with a recent admission for chest pain, found with an abnormal stress test returning with worsening chest pain in the setting of elevated cardiac enzymes, suspicious for diagnosis of non -ST elevation myocardial infarction. 1. Non-ST elevation myocardial infarction: Cardiac consultation. Placed on heparin with heparin drip. Aspirin in the emergency room. Currently, 1/10 chest pain. We will deliver sublingual nitro now. If not chest pain free, we will deliver longer-acting nitro product in the setting of nitro paste. Increase statin from 40 to 80 mg. Metoprolol 25 mg now. N.p.o. for likely cath tomorrow. Continue to trend troponins. EKG with next troponin at 5. Discussed care with Dr. Barragan. 2. Elevated lactic acid in the setting of non-ST elevation myocardial infarction: Received normal saline. Recheck lactic acid with next blood draw at 8. 3. Chronic obstructive pulmonary disease with active wheezes: The patient __ purported allergy___ to oral steroids. Started DuoNebs with Dulera as well as Spiriva. 4. Hypertension: Holding hydrochlorothiazide. Continue lisinopril alone in addition to metoprolol. 5. Hyperlipidemia: High-dose statin. 6. Nicotine or tobacco abuse: Nicotine inhaler available. 7. DVT prophylaxis: Heparin drip. 8. Code status is full. CC: Dr. Rodarte* [id number]/[facility] #: [id number] [facility]
--- NOTE | 2016-05-04 19:51 | CONS ---
INTERVENTIONAL CARDIOLOGY CONSULT NOTE: DATE OF CONSULT: 05/04/16 PRIMARY CARE PHYSICIAN: Dr. Rodarte. HISTORY OF PRESENT ILLNESS: A 51-year-old male recently hospitalized with chest pain, readmitted with recurrence of pain and abnormal troponins. He is a good historian; however, has a history of fairly atypical chest pain for several weeks. He was hospitalized here on the , had flat troponins at 0.02, 0.03, 0.03. Stress imaging was read as showing inferior ischemia but on subsequent review was thought to be artifactual. He had a low BOOGIE score of 2, he was discharged on medical therapy. Since discharge his acid reflux symptoms have resolved but he has continued to have episodes of precordial chest discomfort, which varied from being sharp and stabbing to when more severe, more like a gripping type sensation in the center of his chest, which radiates into his left arm. With it, he becomes short of breath. Interestingly, these episodes are typically in the classification clerk hours but not during the day and are not precipitated by physical activity. Yesterday to this morning, he had a 7-hour episode of chest discomfort off and on that resolved in the ER. He has not noticed any change in exercise tolerance, he has never had bleeding issues. PAST MEDICAL HISTORY: Hypertension, COPD on inhalers. PREHOSPITAL MEDICATIONS: 1. Prilosec 20 mg daily. 2. Lisinopril/hydrochlorothiazide 10/12.5 mg daily. 3. Cardizem CD 120 mg daily. 4. Lipitor 40 daily. 5. Aspirin 81 mg daily. 6. Ventolin 2 puffs q.6 p.r.n. REVIEW OF SYSTEMS: General: No change in exercise tolerance, no fever. [employer]CRA[employer]INE [employer]IC: No history of TIA or CVA. GI: No peptic ulcer disease or bleeding, GERD symptoms have resolved with Prilosec. Circulatory: No claudication. Remainder all negative. PHYSICAL EXAM: He is pain free and comfortable, he is overweight, BP 166/82, pulse in the 70s to 80s, sinus rhythm. Lungs: Clear to percussion but has prolonged expiratory phase with expiratory wheezing bilaterally. JVP is not visible. Carotids are normal without bruits. HEENT: Unremarkable. There is no thyromegaly. Cardiac Exam: [place] and RV not palpable, normal heart sounds, no gallop, murmur, or rub. Abdomen is obese, nontender. He has bowel sounds, aorta is not palpable, nor is liver. He has no ascites or tenderness. Femoral pulses are palpable as are radials and pedals. He has no cyanosis, clubbing or edema. Skin is warm and perfused. DIAGNOSTIC STUDIES/LAB DATA: Chest x-ray is unremarkable to my review. EKG shows poor R-wave progression. CBC is unremarkable. BMP is notable only for sodium of 129. His cholesterol is high at 261 with triglycerides 245; LDL 155; HDL 57, before Lipitor 40. Troponin 1.74, 3.07, not yet peaked. IMPRESSION: Troponin positive acute coronary syndrome/non-ST elevation infarct. His symptoms are somewhat atypical, there was concern that his stress test was false positive. However, he has failed a trial of medical therapy with recurrence of chest discomfort and a small troponin rise. He needs a coronary angiogram which we discussed. We reviewed possible need for stenting, dual antiplatelet therapy, procedure risks, etc. Cath is planned for the morning. CC: Dr. Jacome* [id number]/[facility] #: [id number] MTDJaelyn
[2016-05-05 05:59] LABS: Hematocrit 43 % (42-52); Hemoglobin 14.6 g/dl (14.0-18.0); Mean Corpuscular HGB Conc 34 g/dl (31-36); Mean Corpuscular Hemoglobin 33 pg (27-31); Mean Corpuscular Volume 96 fL (80-94); Mean Platelet Volume 8 um3 (7.4-10.4); Red Blood Count 4.46 10^6/ul (4.0-5.4); Red Cell Distribution Width 13 % (10.5-15); White Blood Count 8.7 10^3/ul (3.5-10.8)
[2016-05-05 06:22] LABS: BUN/Creatinine Ratio 21.7 (8-20); Calcium 9.2 mg/dL (8.6-10.3); EGFR African American 125.6 (>60); EGFR Non-African American 97.7 (>60); Potassium 4.3 mmol/L (3.5-5.0)
[2016-05-05 06:24] LABS: Troponin I 2.82 ng/mL (<0.04)
[2016-05-05] MEDS ORDERED: NS 0.9% 1000 ML* 1,000 ML IV SCH ×2 (07:00→14:45)
[2016-05-05] MEDS ORDERED: Lisinopril TAB* 10 MG PO SCH (09:00)
[2016-05-05] MEDS ORDERED: Spiriva Inhaler DEVICE* 1 EACH DEVICE INH ONE (09:00)
[2016-05-05] MEDS ORDERED: Aspirin EC Low Dose* 81 MG TAB.EC PO SCH (09:00)
[2016-05-05] MEDS: Aspirin Low Dose CHEW TAB* 81 MG PO SCH (09:29)
[2016-05-05] MEDS ORDERED: fentaNYL* 50 MCG/ML 2 ML VIAL (100 MCG VIAL) ONE ×4 (09:50→14:08)
[2016-05-05] MEDS ORDERED: Midazolam* 1 MG/ML 5 ML VIAL (5 MG) ONE ×2 (09:50→12:37)
[2016-05-05] MEDS ORDERED: VERAPAMIL 2.5 MG/ML 4 ML VIAL ONE ×2 (09:51→12:37)
[2016-05-05] MEDS ORDERED: Heparin 2 UNITS/ML IVPREMIX* 3,000 ML IV ONE ×2 (09:51→12:37)
[2016-05-05] MEDS ORDERED: Lidocaine 1% INJ* 10 MG/ML 30 ML SDV ONE ×2 (09:51→12:37)
[2016-05-05] MEDS ORDERED: nitroGLYCERIN DRIP* 250 ML ONE ×2 (09:51→12:37)
[2016-05-05] MEDS ORDERED: Heparin(*) 1000 UNIT/ML 10 ML VIAL CATH LAB IV ONE ×2 (09:51→12:37)
[2016-05-05] MEDS ORDERED: Iohexol 350 (CONTRAST) 200 ML MDV IV ONE ×3 (09:51→13:54)
[2016-05-05] MEDS ORDERED: Heparin DRIP 25,000 UNITS(*) 25,000 UNITS/500 ML BAG ONE (10:21)
[2016-05-05] MEDS: Tiotropium CAP.INH* CAP.INH/18 MCG (USE ORDER SET !) INH SCH (10:48)
[2016-05-05] MEDS ORDERED: Ticagrelor* 90 MG TAB PO ONE (13:25)
[2016-05-05] MEDS: Omeprazole CAP* 20 MG PO SCH (15:16)
[2016-05-05] MEDS: Diltiazem CD CAP* 120 MG PO SCH (15:16)
[2016-05-05] MEDS: Nicotine PATCH 21 MG/24 HR* PATCH TRANSDERM SCH (15:20)
[2016-05-05] MEDS: Atorvastatin* 80 MG TAB PO SCH (16:56)
[2016-05-05] MEDS: Nitroglycerin TAB 0.4 MG* 0.4 MG TAB SL PRN (16:56)
--- NOTE | 2016-05-05 17:03 | PN ---
Subjective Date of Service: 05/05/16 Interval History: Seen and examined in ICU after [facility] Reporting 4-5/10 SSCP similar to what he was experiencing on arrival He reports no pain on arrival to ICU with nursing indicates he has been reporting at least 3/10 since arrival Pt without any other complaints Objective Active Medications: Acetaminophen (Tylenol Tab*) 650 mg PO Q4H PRN PRN Reason: FEVER/PAIN Albuterol/Ipratropium (Duoneb Neb.Radha*) 1 neb INH Q6H PRN PRN Reason: SOB/WHEEZING Last Admin: 05/04/16 20:07 Dose: 1 neb Aspirin (Aspirin Low Dose Tab*) 81 mg PO DAILY [facility] Last Admin: 05/05/16 09:29 Dose: 81 mg Atorvastatin Calcium (Lipitor*) 80 mg PO 1700 [facility] Last Admin: 05/05/16 16:56 Dose: 80 mg Diltiazem HCl (Cardizem Cd Cap*) 120 mg PO DAILY [facility] Last Admin: 05/05/16 15:16 Dose: Not Given Sodium Chloride (Ns 0.9% 1000 Ml*) 1,000 mls @ 100 mls/hr IV .per rate [facility] Stop: 05/05/16 19:00 Last Admin: 05/05/16 15:22 Dose: 100 mls/hr Lisinopril (Prinivil Tab*) 10 mg PO DAILY [facility] Last Admin: 05/05/16 15:16 Dose: Not Given Nicotine (Nicotine Inhaler*) 10 mg INH Q2H PRN PRN Reason: CRAVING Nicotine (Nicotine Patch 21 Mg/24 Hr*) 1 patch TRANSDERM DAILY@0800 [facility] Last Admin: 05/05/16 15:20 Dose: 1 patch Nitroglycerin (Nitroglycerin Tab 0.4 Mg*) 0.4 mg SL Q5M PRN PRN Reason: ANGINA Last Admin: 05/05/16 16:56 Dose: 0.4 mg Omeprazole (Prilosec Cap*) 20 mg PO DAILY [facility] Last Admin: 05/05/16 15:16 Dose: Not Given Pharmacy Profile Note (Nicotine Patch Removal Note*) 1 note PATCH OFF 2100 [facility] Ticagrelor (Brilinta*) 90 mg PO BID [facility] Tiotropium [place] (Spiriva Cap.Inh*) 1 cap INH DAILY [facility] Last Admin: 05/05/16 10:48 Dose: Not Given Vital Signs 05/04/16 05/04/16 05/04/16 17:25 20:00 20:39 Temperature 98.1 F Pulse Rate 86 83 Respiratory 18 16 16 Rate Blood Pressure 90/63 (mmHg) O2 Sat by Pulse 97 96 Oximetry 05/05/16 05/05/16 05/05/16 00:06 03:50 07:29 Temperature 97.1 F 96.9 F 98.0 F Pulse Rate 72 66 71 Respiratory 16 16 16 Rate Blood Pressure 124/67 101/56 128/76 (mmHg) O2 Sat by Pulse 96 97 94 Oximetry 05/05/16 05/05/16 05/05/16 08:00 11:06 11:30 Temperature Pulse Rate 65 61 Respiratory 16 15 15 Rate Blood Pressure 130/69 (mmHg) O2 Sat by Pulse 99 98 Oximetry 05/05/16 05/05/16 05/05/16 12:00 12:29 12:30 Temperature Pulse Rate 63 72 Respiratory 14 16 Rate Blood Pressure 117/76 127/75 (mmHg) O2 Sat by Pulse 100 99 Oximetry 05/05/16 05/05/16 05/05/16 14:35 14:39 14:45 Temperature 98.4 F Pulse Rate 68 76 72 Respiratory 17 16 17 Rate Blood Pressure 168/76 163/96 (mmHg) O2 Sat by Pulse 100 98 98 Oximetry 05/05/16 05/05/16 05/05/16 15:00 15:15 15:30 Temperature Pulse Rate 66 68 78 Respiratory 16 18 17 Rate Blood Pressure 168/76 158/108 170/91 (mmHg) O2 Sat by Pulse 98 100 94 Oximetry 05/05/16 05/05/16 16:00 16:30 Temperature 99.4 F Pulse Rate 85 88 Respiratory 19 17 Rate Blood Pressure 167/82 160/80 (mmHg) O2 Sat by Pulse 94 93 Oximetry Oxygen Devices in Use Now: None Appearance: NAD Eyes: No Scleral Icterus, PERRLA Ears/Nose/Mouth/Throat: Clear Oropharnyx, Mucous Membranes Moist Neck: NL Appearance and Movements; NL JVP, Trachea Midline Respiratory: Symmetrical Chest Expansion and Respiratory Effort, - - wheeze CARLOS ENRIQUE Cardiovascular: NL Sounds; No Murmurs; No JVD, RRR Abdominal: NL Sounds; No Tenderness; No Distention, No Hepatosplenomegaly Lymphatic: No Cervical Adenopathy Extremities: No Edema, - - right radial access under pressure Neurological: Alert and Oriented x 3 Result Diagrams: 05/05/16 05:36 05/05/16 05:36 Additional Lab and Data: Lab Results 05/04/16 Range/Units 11:10 WBC 10.6 (3.5-10.8) 10^3/ul RBC 4.96 (4.0-5.4) 10^6/ul Hgb 16.2 (14.0-18.0) g/dl Hct 47 (42-52) % MCV 95 H (80-94) fL MCH 33 H (27-31) pg MCHC 34 (31-36) g/dl RDW 13 (10.5-15) % Plt Count 237 (150-450) 10^3/ul MPV 8 (7.4-10.4) um3 Neut % (Auto) 74.0 (38-83) % Lymph % (Auto) 15.8 L (25-47) % [place] % (Auto) 8.8 (1-9) % Eos % (Auto) 0.6 (0-6) % Baso % (Auto) 0.8 (0-2) % Absolute Neuts (auto) 7.8 H (1.5-7.7) 10^3/ul Absolute Lymphs (auto) 1.7 (1.0-4.8) 10^3/ul Absolute Monos (auto) 0.9 H (0-0.8) 10^3/ul Absolute Eos (auto) 0.1 (0-0.6) 10^3/ul Absolute Basos (auto) 0.1 (0-0.2) 10^3/ul Absolute Nucleated RBC 0 10^3/ul Nucleated RBC % 0 Assess/Plan/Problems-Billing Assessment: - Patient Problems (1) NSTEMI (non-ST elevated myocardial infarction) Comment: s/p LHC, PCI to RCA for 80% stenosis not thought to be source of pain at rest but possibly source of defect on stress test Post-lateral cirx with 95% but dissection when attempting PCI. Suspect source of chest pain ICU troponins in setting of dissection SL nitro now and repeat EKG Brilinta and ASA (2) COPD (chronic obstructive pulmonary disease) Comment: paulie Carballo duonebs PRN (3) HLD (hyperlipidemia) Comment: atorvastatin (4) HTN (hypertension) Comment: Metoprolol 25 BID lisinopril 10mg (5) DVT prophylaxis Comment: SCD
[2016-05-05] MEDS ORDERED: Metoprolol Tartrate TAB* 25 MG PO SCH (17:06)
[2016-05-05] MEDS: Nitroglycerin 2% OINT* 1 GM PAK TOPICAL SCH (17:25)
[2016-05-05] MEDS: Mometasone/Formoter 200/5 MDI INH SCH (21:06)
[2016-05-05 21:18] LABS: Troponin I 2.39 ng/mL (<0.04)
[2016-05-05] MEDS: Ticagrelor* 90 MG TAB PO SCH (21:18)
[2016-05-05] MEDS: Nicotine Patch Removal NOTE PATCH OFF SCH (21:19)
[2016-05-06] MEDS: Nitroglycerin TAB 0.4 MG* 0.4 MG TAB SL PRN (02:36)
[2016-05-06] MEDS: Nicotine Patch Removal NOTE PATCH OFF SCH ×2 (02:52→21:48)
[2016-05-06] MEDS: Nitroglycerin 2% OINT* 1 GM PAK TOPICAL SCH ×2 (02:54→13:40)
[2016-05-06 03:32] LABS: Troponin I 2.79 ng/mL (<0.04)
[2016-05-06 05:32] LABS: Hematocrit 40 % (42-52); Hemoglobin 13.6 g/dl (14.0-18.0); Mean Corpuscular HGB Conc 34 g/dl (31-36); Mean Corpuscular Hemoglobin 32 pg (27-31); Mean Corpuscular Volume 96 fL (80-94); Mean Platelet Volume 8 um3 (7.4-10.4); Red Blood Count 4.19 10^6/ul (4.0-5.4); Red Cell Distribution Width 13 % (10.5-15); White Blood Count 9.2 10^3/ul (3.5-10.8)
[2016-05-06 05:51] LABS: BUN/Creatinine Ratio 24.1 (8-20); Blood Urea Nitrogen 19 mg/dL (6-24); CO2 Carbon Dioxide 26 mmol/L (22-32); Chloride 103 mmol/L (101-111); EGFR Non-African American 103.4 (>60); Glucose 108 mg/dL (70-100); Sodium 135 mmol/L (133-145)
[2016-05-06] MEDS: Mometasone/Formoter 200/5 MDI INH SCH ×2 (08:52→21:22)
[2016-05-06] MEDS ORDERED: Metoprolol Tartrate TAB* 25 MG PO SCH (09:00)
[2016-05-06] MEDS: Nicotine PATCH 21 MG/24 HR* PATCH TRANSDERM SCH (09:03)
[2016-05-06] MEDS: Tiotropium CAP.INH* CAP.INH/18 MCG (USE ORDER SET !) INH SCH ×2 (09:03→09:10)
[2016-05-06] MEDS: Aspirin Low Dose CHEW TAB* 81 MG PO SCH (09:04)
[2016-05-06] MEDS: Ticagrelor* 90 MG TAB PO SCH ×2 (09:04→21:29)
[2016-05-06] MEDS: Omeprazole CAP* 20 MG PO SCH (09:04)
[2016-05-06] MEDS: Diltiazem CD CAP* 120 MG PO SCH (09:05)
[2016-05-06] MEDS: Lisinopril TAB* 10 MG PO SCH (09:05)
[2016-05-06 15:27] LABS: Troponin I 2.62 ng/mL (<0.04)
--- NOTE | 2016-05-06 17:05 | PN ---
Subjective Date of Service: 05/06/16 Interval History: Seen and examined this AM had brief episode of CP overnight relieved with nitro SL no other complaints Objective Active Medications: Acetaminophen (Tylenol Tab*) 650 mg PO Q4H PRN PRN Reason: FEVER/PAIN Albuterol/Ipratropium (Duoneb Neb.Radha*) 1 neb INH Q6H PRN PRN Reason: SOB/WHEEZING Last Admin: 05/04/16 20:07 Dose: 1 neb Aspirin (Aspirin Low Dose Tab*) 81 mg PO DAILY [facility] Last Admin: 05/06/16 09:04 Dose: 81 mg Atorvastatin Calcium (Lipitor*) 80 mg PO 1700 [facility] Last Admin: 05/05/16 16:56 Dose: 80 mg Diltiazem HCl (Cardizem Cd Cap*) 120 mg PO DAILY [facility] Last Admin: 05/06/16 09:05 Dose: 120 mg Lisinopril (Prinivil Tab*) 20 mg PO DAILY [facility] Last Admin: 05/06/16 09:05 Dose: 20 mg Metoprolol Tartrate (Lopressor Tab*) 50 mg PO 0900,2099 [facility] Mometasone Furoate/Formoterol Fumar (Dulera 200/5 Mdi*) 2 puff INH BID [facility] Last Admin: 05/06/16 08:52 Dose: 2 puff Nicotine (Nicotine Inhaler*) 10 mg INH Q2H PRN PRN Reason: CRAVING Nicotine (Nicotine Patch 21 Mg/24 Hr*) 1 patch TRANSDERM DAILY@0800 [facility] Last Admin: 05/06/16 09:03 Dose: 1 patch Nitroglycerin (Nitroglycerin Tab 0.4 Mg*) 0.4 mg SL Q5M PRN PRN Reason: ANGINA Last Admin: 05/06/16 02:36 Dose: 0.4 mg Omeprazole (Prilosec Cap*) 20 mg PO DAILY [facility] Last Admin: 05/06/16 09:04 Dose: 20 mg Pharmacy Profile Note (Nicotine Patch Removal Note*) 1 note PATCH OFF 2099 [facility] Last Admin: 05/06/16 02:52 Dose: 1 note Ticagrelor (Brilinta*) 90 mg PO BID [facility] Last Admin: 05/06/16 09:04 Dose: 90 mg Tiotropium [place] (Spiriva Cap.Inh*) 1 cap INH DAILY [facility] Last Admin: 05/06/16 09:10 Dose: Not Given Vital Signs 05/05/16 05/05/16 05/05/16 17:25 17:30 17:37 Temperature Pulse Rate 86 82 79 Respiratory 13 17 22 Rate Blood Pressure 156/75 149/67 (mmHg) O2 Sat by Pulse 94 96 94 Oximetry 05/05/16 05/05/16 05/05/16 18:00 18:30 19:00 Temperature Pulse Rate 81 88 84 Respiratory 18 24 19 Rate Blood Pressure 131/63 139/75 113/73 (mmHg) O2 Sat by Pulse 94 96 95 Oximetry 05/05/16 05/05/16 05/05/16 19:30 19:47 20:00 Temperature 97.1 F Pulse Rate 79 75 Respiratory 11 16 Rate Blood Pressure 150/78 (mmHg) O2 Sat by Pulse 95 95 Oximetry 05/05/16 05/05/16 05/05/16 20:30 21:00 21:30 Temperature Pulse Rate 84 72 71 Respiratory 21 19 18 Rate Blood Pressure 138/71 133/73 150/81 (mmHg) O2 Sat by Pulse 94 93 93 Oximetry 05/05/16 05/05/16 05/05/16 22:00 22:30 23:00 Temperature Pulse Rate 84 78 72 Respiratory 17 17 18 Rate Blood Pressure 123/58 117/50 112/64 (mmHg) O2 Sat by Pulse 95 94 94 Oximetry 05/05/16 05/06/16 05/06/16 23:30 00:00 00:01 Temperature Pulse Rate 69 71 Respiratory 17 16 15 Rate Blood Pressure 120/54 129/65 (mmHg) O2 Sat by Pulse 95 95 Oximetry 05/06/16 05/06/16 05/06/16 00:30 01:00 01:30 Temperature Pulse Rate 76 73 71 Respiratory 17 18 15 Rate Blood Pressure 143/88 141/85 148/81 (mmHg) O2 Sat by Pulse 95 94 94 Oximetry 05/06/16 05/06/16 05/06/16 02:00 02:30 02:37 Temperature Pulse Rate 74 68 75 Respiratory 16 17 14 Rate Blood Pressure 125/72 156/97 161/100 (mmHg) O2 Sat by Pulse 94 95 95 Oximetry 05/06/16 05/06/16 05/06/16 02:51 03:00 03:30 Temperature Pulse Rate 80 67 73 Respiratory 16 18 19 Rate Blood Pressure 161/94 156/84 (mmHg) O2 Sat by Pulse 96 98 99 Oximetry 05/06/16 05/06/16 05/06/16 04:00 04:30 05:00 Temperature 98.7 F Pulse Rate 67 71 70 Respiratory 19 19 16 Rate Blood Pressure 165/98 176/86 160/91 (mmHg) O2 Sat by Pulse 98 94 94 Oximetry 05/06/16 05/06/16 05/06/16 05:30 06:00 06:04 Temperature Pulse Rate 85 71 70 Respiratory 18 18 18 Rate Blood Pressure 170/97 176/111 155/89 (mmHg) O2 Sat by Pulse 95 97 96 Oximetry 05/06/16 05/06/16 05/06/16 07:00 07:35 08:00 Temperature 97.7 F Pulse Rate 66 63 Respiratory 15 19 Rate Blood Pressure 160/89 149/70 (mmHg) O2 Sat by Pulse 96 94 Oximetry 05/06/16 05/06/16 05/06/16 09:00 10:00 11:00 Temperature Pulse Rate 75 73 72 Respiratory 16 18 19 Rate Blood Pressure 164/83 141/72 156/90 (mmHg) O2 Sat by Pulse 96 95 94 Oximetry 05/06/16 05/06/16 05/06/16 11:27 12:00 13:00 Temperature 98.1 F Pulse Rate 71 65 Respiratory 19 20 Rate Blood Pressure 119/65 105/68 (mmHg) O2 Sat by Pulse 94 93 Oximetry 05/06/16 05/06/16 14:00 15:31 Temperature 97.9 F Pulse Rate 75 Respiratory 19 Rate Blood Pressure (mmHg) O2 Sat by Pulse 95 Oximetry Oxygen Devices in Use Now: None Appearance: NAD Eyes: No Scleral Icterus, PERRLA Ears/Nose/Mouth/Throat: Clear Oropharnyx, Mucous Membranes Moist Neck: NL Appearance and Movements; NL JVP Respiratory: Symmetrical Chest Expansion and Respiratory Effort, Clear to Auscultation Cardiovascular: NL Sounds; No Murmurs; No JVD, RRR Abdominal: NL Sounds; No Tenderness; No Distention Extremities: No Edema Neurological: Alert and Oriented x 3 Result Diagrams: 05/06/16 05:10 05/06/16 06:15 Additional Lab and Data: Lab Results 05/04/16 Range/Units 11:10 WBC 10.6 (3.5-10.8) 10^3/ul RBC 4.96 (4.0-5.4) 10^6/ul Hgb 16.2 (14.0-18.0) g/dl Hct 47 (42-52) % MCV 95 H (80-94) fL MCH 33 H (27-31) pg MCHC 34 (31-36) g/dl RDW 13 (10.5-15) % Plt Count 237 (150-450) 10^3/ul MPV 8 (7.4-10.4) um3 Neut % (Auto) 74.0 (38-83) % Lymph % (Auto) 15.8 L (25-47) % [place] % (Auto) 8.8 (1-9) % Eos % (Auto) 0.6 (0-6) % Baso % (Auto) 0.8 (0-2) % Absolute Neuts (auto) 7.8 H (1.5-7.7) 10^3/ul Absolute Lymphs (auto) 1.7 (1.0-4.8) 10^3/ul Absolute Monos (auto) 0.9 H (0-0.8) 10^3/ul Absolute Eos (auto) 0.1 (0-0.6) 10^3/ul Absolute Basos (auto) 0.1 (0-0.2) 10^3/ul Absolute Nucleated RBC 0 10^3/ul Nucleated RBC % 0 Assess/Plan/Problems-Billing Assessment: 51 yo M h/o HTN, HLD, active tobacco abuse a/w NSTEMI s/p [facility] with stent to RCA - Patient Problems (1) NSTEMI (non-ST elevated myocardial infarction) Comment: s/p LHC, PCI to RCA for 80% stenosis not thought to be source of pain at rest but possibly source of defect on stress test Post-lateral cirx with 95% but dissection when attempting PCI. Suspect source of chest pain Transfer from ICU to Brilinta and ASA metoprolol, lisinopril, atorvastatin (2) COPD (chronic obstructive pulmonary disease) Comment: Spiriva, dulera, duonebs PRN (3) HLD (hyperlipidemia) Comment: atorvastatin (4) HTN (hypertension) Comment: Metoprolol 25 BID lisinopril 10mg increased to 20mg 05/06/16 (5) DVT prophylaxis Comment: HSQ
[2016-05-06] MEDS: Atorvastatin* 80 MG TAB PO SCH (18:15)
[2016-05-06] MEDS: Metoprolol Tartrate TAB* 25 MG PO SCH (21:28)
[2016-05-06] MEDS: Heparin VIAL(*) 5000 UNITS/ML VIAL (FIVE THOUSAND) SUBCUT SCH (21:49)
[2016-05-07] MEDS: Heparin VIAL(*) 5000 UNITS/ML VIAL (FIVE THOUSAND) SUBCUT SCH ×2 (05:59→13:44)
[2016-05-07] MEDS: Mometasone/Formoter 200/5 MDI INH SCH (08:17)
[2016-05-07] MEDS: Tiotropium CAP.INH* CAP.INH/18 MCG (USE ORDER SET !) INH SCH (08:18)
[2016-05-07] MEDS: Nicotine PATCH 21 MG/24 HR* PATCH TRANSDERM SCH (09:15)
[2016-05-07] MEDS: Metoprolol Tartrate TAB* 25 MG PO SCH (09:17)
[2016-05-07] MEDS: Omeprazole CAP* 20 MG PO SCH (09:18)
[2016-05-07] MEDS: Aspirin Low Dose CHEW TAB* 81 MG PO SCH (09:18)
[2016-05-07] MEDS: Diltiazem CD CAP* 120 MG PO SCH (09:18)
[2016-05-07] MEDS: Lisinopril TAB* 10 MG PO SCH (09:18)
[2016-05-07] MEDS: Ticagrelor* 90 MG TAB PO SCH (09:19)
[2016-05-07] MEDS ORDERED: CMC Prasugrel (NF) 10 MG PO SCH (11:00)
[2016-05-07 11:27] VITALS: BP 113/66
--- NOTE | 2016-05-08 06:34 | DS ---
DISCHARGE SUMMARY: DATE OF ADMISSION: 05/04/16 DATE OF DISCHARGE: 05/07/16 PRIMARY CARE PROVIDER: Dr. Rodarte. TOMOGRAPHIC TECH: Dr. Barrera. PRIMARY DIAGNOSIS: Non-ST elevation myocardial infarction. SECONDARY DIAGNOSES: Include: 1. Chronic obstructive pulmonary disease. 2. Hyperlipidemia. 3. Hypertension. 4. Active tobacco abuse. MEDICATIONS ON DISCHARGE: 1. Omeprazole 20 mg daily. 2. Diltiazem CD 120 mg daily. 3. Bismuth subsalicylate 525 mg as needed. 4. Aspirin 81 mg daily. 5. Albuterol HFA 2 puffs every 6 hours as needed. 6. Effient 10 mg daily. 7. Nitroglycerin sublingual 0.4 mg every 5 minutes up to 3 times as needed for chest pain. 8. Nicotine patch transdermally as needed. 9. Metoprolol tartrate 50 mg twice daily. 10. Lisinopril 20 mg daily. 11. Advair 250/50 one puff inhaled twice daily. 12. Atorvastatin 80 mg daily. 13. Chantix starter pack prescribed on discharge. PERTINENT LABORATORY DATA: Troponin I peaked at 4.0. PROCEDURES PERFORMED DURING HOSPITAL STAY: Left heart cath performed by Dr. Barrera, 05/05/16, with drug-eluting stent to right heart cath, posterior lateral circumflex with 95% stenosis has dissection. No stent left in place. HISTORY OF PRESENT ILLNESS AND HOSPITAL COURSE: This is a 51-year-old man with past medical history as outlined in the history of present illness on the day of admission, recent stay at [facility] for chest pain, returned again with worsening chest pain, found with positive cardiac enzymes. He was brought to cardiac catheterization with Dr. Barrera, had stent placed in his RCA. Of note, it was thought that it was more likely his posterolateral circumflex 95% occluded causing his chest pain; however, likely the RCA that was leading to defects seen on the stress test performed prior to his hospital stay. The patient tolerated the procedure well. Of note, there was a dissection. The patient was monitored for an extra day and troponins were trended. Troponins trended down. On the day of discharge, the patient was ambulating at least 4 laps around the unit without any pain. He had no complaints. He expressed interest in smoking cessation upon discharge. He was not interested in Chantix; however , provided should he change his mind on discharge. There are no complications during this patient's hospital stay. At followup, please: 1. Evaluate right radial site for continued healing. 2. Evaluate for continued blood pressure control. 3. Evaluate for continued cholesterol control. 4. Importantly evaluate for smoking cessation. 5. No other specific labs or vitals that need followup. Reasons to return to the hospital including but not limited to recurrent or worsening chest pain, shortness of breath, nausea, vomiting, lightheadedness, loss of consciousness, near loss of consciousness, bleeding from any source, bleeding or bruising over his right wrist site of his radial cath, inability to obtain or tolerate his medications were discussed with the patient. He acknowledged understanding. TIME SPENT: Greater than 45 minutes was spent on the discharge of the patient; greater than half was [id number] with the patient. CC: Dr. Rodarte; Dr. Barrera * [id number]/CPS #: [id number] MTDD
[2016-05-08] MEDS ORDERED: CMC Pantoprazole TAB (NF) 40 MG TAB PO SCH (09:00)
--- NOTE | 2016-05-09 02:14 | CATH ---
CC: Dr. Rodarte; Dr. Barrera STENT REPORT: DATE OF PROCEDURE: 05/05/16 PRIMARY CARE PHYSICIAN: Dr. Rodarte. PROCEDURES: Right radial artery access, bilateral selective coronary cineangiography, left heart catheterization, no left ventriculogram, stent placement RCA, 4.0 x 24 Synergy drug-eluting stent, angioplasty, circumflex posterolateral complicated by distal dissection. HISTORY: A 51-year-old male with recent hospitalization for somewhat atypical chest pain with stress imaging with possible inferior ischemia. He failed medical management with recurrence of chest pain and small rise in troponin, therefore was referred for angiography. PROCEDURE ACCESS: Right radial artery sheath 6-F slender. As soon as the sheath was placed, a STEMI was called in the ER. The patient was therefore taken off the table, placed on an IV heparin drip and subsequently brought back for the procedure after completion of the interrupting STEMI case. The right radial 6-F slender sheath was exchanged sterilely for a new sheath. MEDICATIONS: 1. Subcu lidocaine. 2. IV Versed. 3. IV fentanyl. 4. Heparin 3000 units IV. 5. Nitroglycerin 300 mcg. 6. Verapamil 3 mg IA x2. 7. Brilinta 180 mg p.o. loading dose. 8. IC nitroglycerin 300 mcg. DIAGNOSTIC CATHETERS: 5-F TIG4, guiding catheter RCA, 6-F Ikari right 1, wire 14 BMW used to deploy a 4.0 x 24 Synergy drug-eluting stent mid RCA, 20 atmospheres at 35 seconds with reproduction of his angina. A 6-F VL4 guide was then introduced, a soft tip 14 BMW wire was used to access the most distal posterolateral, the high- grade stenosis was gently probed, would not cross. A supportive 2 mm balloon was then introduced, the wire did advance more distally , but appeared to be in a dissection plane. A Whisper 14 wire was then introduced replacing the BMW, again passed beyond the occlusion point, but there was a distal probable dissection. A 2 mm x 12 balloon was used to dilate the high-grade stenosis, 6 atmospheres for 30 seconds with improvement; however , because of very small distal tapering vessel size, the posterolateral branch was not stented as distally vessel reference diameter was too small for stent placement. At the end of the procedure, he had no ST changes, no chest pain, was transferred to the ICU. HEMODYNAMICS: Initial BP 153/96, final BP 181/98. ANGIOGRAPHY: Left main: The left main is large, has no stenosis. LAD: The LAD is large, extends past the apex, it supplies a large diagonal branch, which has minor luminal irregularity, then distally it has a tubular tandem 50% stenosis, the diagonal is very large, similar to the LAD. The continuation on the LAD has luminal irregularity, but no significant stenosis. Circumflex: The circumflex is large, not dominant with a small ramus, which has a 40% proximal stenosis, the circumflex has scattered luminal irregularity, supplies a large marginal, which bifurcates followed by a moderate posterolateral, which has luminary irregularity, but no significant stenosis, and ends with a smaller distal posterolateral, which has luminal irregularity with a fairly discrete eccentric 90% stenosis after which the vessel is approximately 2 mm and fairly rapidly tapers. My concern was that his rest pain with troponin elevation may be due to the posterolateral branch as the RCA stenosis was potentially not sufficiently severe to cause rest pain. RCA: The RCA is large, dominant with a 75% stenosis at the acute margin with some lucency, the PDA is large followed by small posterolateral. RCA has BOOGIE 3 flow. After RCA stent placement, there was distal spasm, which resolved with IC nitroglycerin, final excellent angiographic result without residual stenosis, the jailed RV free wall branch had BOOGIE 2 flow. The PDA has a proximal 30% to 40% stenosis. After balloon dilatation of the posterolateral, the stenosis site is improved, there is BOOGIE 2 flow into the distal posterolateral branch with likely dissection all the way clear dissection plane is not evident. Because of small size, it was not pursued. CONCLUSION: 1. Two-vessel disease RCA and circumflex PL, excellent angiographic result with RCA drug-eluting stent placement, angioplasty of the posterolateral accompanied by probable distal dissection without significant clinical sequelae. 2. Successful right radial artery access. [id number]/CPS #: [id number] BARRIE
== END 2016-05-07 15:37 | disposition home or self-care (01) | DRG 174 ==
LOC: ED 10:22 → ICU 13:10 → MEDTELE 15:57 → ICU 05-05 14:40 → MEDTELE 05-06 20:30
PROVIDERS: ADMIT Internal Medicine; ATTEND Internal Medicine
PROC: 4A023N7 Measurement of Cardiac Sampling and Pressure, Left Heart, Percutaneous Approach (ICD-10-PCS; principal; 2016-05-04)
PROC: B2111ZZ Fluoroscopy of Multiple Coronary Arteries using Low Osmolar Contrast (ICD-10-PCS; 2016-05-04)
PROC: 027034Z Dilation of Coronary Artery, One Artery with Drug-eluting Intraluminal Device, Percutaneous Approach (ICD-10-PCS; 2016-05-04)
PROC: 02703ZZ Dilation of Coronary Artery, One Artery, Percutaneous Approach (ICD-10-PCS; 2016-05-04)
DX: I21.4 Non-ST elevation (NSTEMI) myocardial infarction (principal); I25.42 Coronary artery dissection; I10 Essential (primary) hypertension; J44.9 Chronic obstructive pulmonary disease, unspecified; E78.5 Hyperlipidemia, unspecified; F17.200 Nicotine dependence, unspecified, uncomplicated; Z79.82 Long term (current) use of aspirin; Z88.8 Allergy status to other drugs, medicaments and biological substances; Z98.1 Arthrodesis status; Z96.643 Presence of artificial hip joint, bilateral; R40.2412 Glasgow coma scale score 13-15, at arrival to emergency department; I25.10 Atherosclerotic heart disease of native coronary artery without angina pectoris
CPT/HCPCS: 36415; 71010; 80048; 80053; 82553; 83605; 83880; 84484; 85025; 85730; 93005; 93458; 94640; 94760; 99406; A9270-GY; C1725; C1769; C1876; C1887; C9600-RC; J1644; J1650; J2250; J3010

== ENCOUNTER 2016-07-01 15:05 | Inpatient (IN) | payer BC ==
[2016-07-01] MEDS ORDERED: NS 0.9% 1000 ML* 2,000 ML IV ONE (15:31)
[2016-07-01 15:42] LABS: Hematocrit 31 % (42-52); Hemoglobin 10.8 g/dl (14.0-18.0); Mean Corpuscular HGB Conc 35 g/dl (31-36); Mean Corpuscular Hemoglobin 32 pg (27-31); Mean Corpuscular Volume 93 fL (80-94); Mean Platelet Volume 7 um3 (7.4-10.4); Red Blood Count 3.37 10^6/ul (4.0-5.4); Red Cell Distribution Width 13 % (10.5-15); White Blood Count 9.9 10^3/ul (3.5-10.8)
[2016-07-01 15:56] LABS: Albumin 4.8 g/dL (3.2-5.2); BUN/Creatinine Ratio 29.1 (8-20); Calcium 9.7 mg/dL (8.6-10.3); EGFR African American 97.9 (>60); EGFR Non-African American 76.1 (>60); Globulin 2.5 g/dL (2-4); Total Bilirubin 0.5 mg/dL (0.2-1.0); Total Protein 7.3 g/dL (6.4-8.9)
[2016-07-01] MEDS ORDERED: Pantoprazole IV* 80 MG in NS 0.9% 250 ML* 250 ML IVPB ONE (16:40)
[2016-07-01] MEDS ORDERED: Pantoprazole IV* 40 MG IV ONE ×2 (16:46→16:58)
[2016-07-01] MEDS ORDERED: Pantoprazole IV* 80 MG in NS 0.9% 250 ML* 250 ML IVPB SCH (17:00)
[2016-07-01] MEDS ORDERED: Albuterol HFA INHALER* 8 gm MDI INH PRN (17:07)
[2016-07-01] MEDS ORDERED: Nitroglycerin TAB 0.4 MG* 0.4 MG TAB SL PRN (17:07)
[2016-07-01] MEDS: NS 0.9% 1000 ML* 1,000 ML IV SCH ×2 (17:16→23:21)
[2016-07-01] MEDS: Pantoprazole IV* 80 MG in NS 0.9% 250 ML* 250 ML IVPB SCH (17:16)
--- NOTE | 2016-07-01 17:22 | ED ---
Ryan Mccabe Billy, scribed for Max Pinon MD on 07/01/16 at 1627 . Dizziness - HPI Summary HPI Summary: Patient is a 51 year-old male coming to [facility] for evaluation 1.5 weeks of black stools and intermittent dizziness. Patient takes Effient. He has a history of COPD but he states that he has had increased SOB compared to usual. Denies any chest pain. Denies any regular NSAID use. Patient's last colonoscopy was a routine procedure [address] Neal, when he had two polyps removed. - History Of Current Complaint Chief Complaint: EDDizziness Stated Complaint: BLACKEN STOOL/DIZZINESS Time Seen by Provider: 07/01/16 15:16 Hx Obtained From: Patient Timing: Intermittent Episode Lasting Severity Initially: Moderate Severity Currently: Moderate Character: Dizzy Aggravating Factor(s): Nothing Alleviating Factor(s): Nothing Associated Signs And Symptoms: Positive: Blood In Stool - Allergies/Home Medications Allergies/Adverse Reactions: Allergies Allergy/AdvReac Type Severity Reaction Status Date / Time Prednisone AdvReac Severe See Comment Verified 04/27/16 11:05 PMH/Surg Hx/FS Hx/Imm Hx Endocrine/Hematology History: Denies: Hx Diabetes Cardiovascular History: Reports: Hx Angina, Hx Hypertension Denies: Hx Coronary Artery Disease, Hx Hypercholesterolemia, Hx Myocardial Infarction, Hx Valvular Heart Disease Respiratory History: Reports: Hx Chronic Obstructive Pulmonary Disease (COPD) Denies: Hx Asthma - Surgical History Surgery Procedure, Year, and Place: Right hip replacement Infectious Disease History: No Infectious Disease History: Denies: Traveled Outside the [place] in Last 30 Days - Family History Known Family History: Positive: Unknown - adopted - Social History Alcohol Use: None Alcohol Amount: 2-3 drinks weeks nights, more on the week ends Substance Use Type: Reports: None Smoking Status (MU): Heavy Every Day Tobacco Smoker Review of Systems Negative: Chest Pain Positive: Shortness Of Breath Positive: Other - black stools Neurological: Other - dizziness All Other Systems Reviewed And Are Negative: Yes Physical Exam - Summary Physical Exam Summary: VITAL SIGNS: Reviewed. GENERAL: Patient is a pale male who is lying comfortable in the stretcher. Patient is not in any acute respiratory distress. Speaking in full sentences. HEAD AND FACE: Normocephalic EYES: PERRLA, EOMI x 2. EARS: Hearing grossly intact. MOUTH: Oropharynx within normal limits. NECK: Supple, trachea is midline, no adenopathy, no JVD, no carotid bruit. CHEST: Symmetric, no tenderness at palpation LUNGS: Bilateral wheezing diffusely, without crackles. CVS: Regular rate and rhythm, S1 and S2 present, no murmurs or gallops appreciated. ABDOMEN: Soft, non-tender. Bowel sounds are normal. No abdominal abnormal pulsations. We obtained a guaiac card without rectal exam since he was able to have a bowel movement, positive melena visualized. EXTREMITIES: Full ROM in all major joints, no edema, no cyanosis or clubbing. NEURO: Alert and oriented x 3. No acute neurological deficits. Speech is normal and follows commands. SKIN: Dry and warm Triage Information Reviewed: Yes Vital Signs On Initial Exam: Initial Vitals Temp Pulse Resp BP Pulse Ox 96.6 F 95 20 116/62 97 07/01/16 15:08 07/01/16 15:08 07/01/16 15:08 07/01/16 15:08 07/01/16 15:08 Vital Signs Reviewed: Yes - Berto Coma Scale Coma Scale Total: 15 Diagnostics - Vital Signs Vital Signs Temp Pulse Resp BP Pulse Ox 07/01/16 15:37 98.7 F 95 18 103/52 98 07/01/16 15:08 96.6 F 95 20 116/62 97 - Laboratory Lab Results: Lab Results 07/01/16 Range/Units 15:32 Blood Type Pending Antibody Screen Pending Result Diagrams: 07/01/16 15:32 07/01/16 15:32 Lab Statement: Any lab studies that have been ordered have been reviewed, and results considered in the medical decision making process. - EKG 1556 EKG Interpretation: NSR 77 bpm, no STEMI Dizzy Course/Dx - Course Assessment/Plan: Patient is a 51 year-old male coming to [facility] for evaluation 1.5 weeks of black stools and intermittent dizziness. Patient takes Effient. He has a history of COPD but he states that he has had increased SOB compared to usual. Denies any chest pain. Denies any regular NSAID use. Patient's last colonoscopy was a routine procedure [address] Neal, when he had two polyps removed. Bloodwork shows H&H of 10.8/31, sodium 127, BUN of 30, guaiac is positive for occult blood. Initially the patient was given IV fluids since he is slightly hypotensive. The patient was started on Protonix. The patient had a BM which is actually melena, guaiac positive. At this point, I discussed the case with Dr. Lemon who accepted the patient for admission. I also discussed the case with Dr. Reveles from GI who will consult for this patient. The patient has appropriate IV access and will be admitted to hospitalist services. His blood pressure is improved and he is no longer dizzie or short of breath. - Diagnoses Differential Diagnosis/HQI/PQRI: GI Bleed, Vasovagal Reaction, Other - Dizzinees. Provider Diagnoses: stable gi bleed - Provider Notifications Discussed Care Of Patient with: Dr. Lemon (hospitalist) @ 1626: accepts admission. Dr. Reveles (GI) @ 1646: will consult. Discharge - Discharge Plan Condition: Stable Disposition: ADMITTED TO [facility] Referrals: Marvel Rodarte MD [Primary Care Provider] - The documentation as recorded by the Ryan ahn Billy accurately reflects the service I personally performed and the decisions made by , Max Pinon MD.
--- NOTE | 2016-07-01 17:46 | RAD ---
INDICATION: Melena COMPARISON: Chest x-ray dated May 04, 2016 TECHNIQUE: PA and lateral views of the chest were obtained. FINDINGS: The heart and mediastinum are normal in size and contour. The lungs appear hyperaerated and the AP view and on the lateral view there are flattened diaphragms and mildly increased retrosternal airspace. The lungs are grossly clear. There is no evidence of large pleural effusion. The plate and screw fixator is noted overlying the cervical spine. There is no radiographic evidence of free air beneath the diaphragm IMPRESSION: APPEARANCE OF CHRONIC OBSTRUCTIVE PULMONARY DISEASE IS NOTED WITHOUT RADIOGRAPHICALLY APPARENT ACUTE CARDIOPULMONARY ABNORMALITIES.
[2016-07-01 19:58] LABS: Hematocrit 28 % (42-52); Hemoglobin 9.7 g/dl (14.0-18.0)
[2016-07-01] MEDS: Metoprolol Tartrate TAB* 50 mg PO SCH (20:48)
[2016-07-01] MEDS: Mometasone/Formoter 200/5 MDI INH SCH (21:23)
--- NOTE | 2016-07-02 00:42 | HP ---
HISTORY AND PHYSICAL: DATE OF ADMISSION: 07/01/16 TIME OF EVALUATION: 04:30 p.m. PRIMARY CARE PROVIDER: Dr. Rodarte. ARMATURE REPAIRER: Dr. Barrera. CONSULTING PSYCHIATRIC THERAPIST: Dr. Reveles. CHIEF COMPLAINT: "My stool was black." HISTORY OF PRESENT ILLNESS: Mr. Cornell is a 51-year-old male with a past medical history of COPD, hyperlipidemia, hypertension, and tobacco abuse, recent admission for non-ST elevation AR who presents to the emergency room with complaints of black stool. The patient was admitted to [facility] from May 04 to May 07 with chest pain, found to have a non-ST elevation AR and he had a drug-eluting stent placed to his RCA. He was discharged home on aspirin and prasugrel and states that initially he was doing well, but 10 days ago he started to notice black stool. He had no abdominal pain, nausea, vomiting and he saw that this could be a side effect of his medication, but did not seek medical attention. Today, he went to see his PCP. When he reported the black stool, he was sent to the emergency room for further evaluation. He denies chest pain, palpitations, or shortness of breath. He only complains of mild lightheadedness when he stands up fast, but this also resolved quickly. He denies fever, chills, nausea, vomiting, or any other complaints. PAST MEDICAL HISTORY: 1. Hypertension. 2. Hyperlipidemia. 3. COPD. 4. History of avascular necrosis of bilateral hips while he was on steroids in the past. 5. Osteoarthritis. 6. C4-C5 fusion in 2009. 7. Status post left hip replacement in 2009 and right hip replacement in 2004. 8. Non-ST elevation AR in April with a cardiac cath that showed 75% stenosis of the RCA, status post drug-eluting stent and a small distal dissection of the circumflex. MEDICATIONS: 1. Albuterol HFA 2 puffs inhaled q.6 h. p.r.n. shortness of breath or wheezing. 2. Aspirin 81 mg p.o. daily. 3. Atorvastatin 80 mg p.o. daily. 4. Pepto-Bismol 525 mg p.o. daily as needed for indigestion. 5. Cardizem CD 120 mg p.o. daily. 6. Advair 250/50 one puff inhaled b.i.d. 7. Lisinopril 20 mg p.o. daily. 8. Metoprolol tartrate 50 mg p.o. b.i.d. 9. Nicotine patch 21 mg topical daily. 10. Nitroglycerin 0.4 mg sublingual q.5 minutes p.r.n. chest pain, maximum 3 doses. 11. Omeprazole 20 mg p.o. daily. 12. Prasugrel 10 mg p.o. daily. ALLERGIES: With PREDNISONE, the patient had bilateral hip avascular necrosis. FAMILY HISTORY: The patient is adopted, so his family history is unknown. SOCIAL HISTORY: The patient is a smoker, 1-1/2 packs per day for 30 years, trying to quit. History of moderate alcohol use. No drug use. Surrogate decision maker is his , Remedios Cornell, phone number is [phone]. REVIEW OF SYSTEMS: A 14-point review of systems is performed and no other pertinent negative and positive findings other than in the HPI. PHYSICAL EXAMINATION GENERAL: The patient is a pleasant middle aged male lying in the ER stretcher, in no acute distress. VITAL SIGNS: Temperature is 98.7, heart rate is 86, respiratory rate is 18, oxygen saturation 97% on room air, blood pressure is 119/49. The patient was found to be orthostatic in the emergency room with a heart rate of 79, blood pressure 112/77 when lying and a heart rate of 87 and blood pressure of 99/46 when standing up. HEENT: Pupils are equal. Moist mucous membranes. CHEST: Breath sounds present bilaterally with no added sounds. CVS: Normal S1, S2. Regular rate and rhythm. ABDOMEN: Obese, soft, nontender, nondistended. Bowel sounds are present. EXTREMITIES: No edema. NEURO: He is alert, awake, and oriented x3. Able to move all 4 extremities. LABORATORY AND IMAGING DATA: The patient's CBC showed a WBC of 9.9, hemoglobin of 10.8, hematocrit of 31, platelets of 297, 65% neutrophils. Of note, his hemoglobin was 13.6 on the day of discharge in April. INR is 0.8. Chemistry showed sodium 129, potassium 5, chloride of 93, bicarb of 26, BUN of 30, creatinine of 1.03, glucose of 98. LFTs are normal. EKG done 07/01/16 at 1556 showed sinus rhythm at 77 beats per minute with no significant ST-T changes. Actually, his T-wave inversions are improved when compared to his prior EKG from April. Stool for occult blood was positive. ASSESSMENT AND PLAN: Mr. Cornell is a 51-year-old male with a past medical history of chronic obstructive pulmonary disease, hyperlipidemia, hypertension, and tobacco abuse status post recent non-ST elevation myocardial infarction with a drug-eluting stent placed to his RCA, being treated with aspirin and prasugrel who presents to the emergency room with complaints of black stool. 1. Upper GI bleed. The patient has melena, elevation of BUN suggested that the force of his bleed is higher. Due to his recent myocardial infarction, the patient will be admitted to the intensive care unit for close monitoring. He will be started on Protonix drip and a gastroenterology consultation was already requested with Dr. Reveles. The patient will be on a clear liquid diet, n.p.o. after midnight for an EGD in the morning. The patient has no prior history of GI bleed and never had an endoscopy and had a routine colonoscopy done 6 years ago and showed only a polyp as per patient. 2. Acute blood loss anemia. The patient's hemoglobin has dropped from 13.6 in April to 10.8 today. At this point, he is only slightly symptomatic with some orthostatism. He has no chest pain or shortness of breath and I believe a blood transfusion is not indicated at this point. We are going to monitor his H and H and transfuse if his hemoglobin is less than 8. 3. Coronary artery disease. I discussed his case with Cardiology (Dr. Barrera) and considering his clinical picture, we agree that the best course of action will be continue his aspirin and hold his prasugrel and resume it as soon as GI deems it safe after his endoscopy. His EKG is improved from his prior admission and he has no complaints of chest pain at this time. I am going to continue his statin and also his beta-paty as his blood pressure allows, but I am going to hold his REANNA inhibitor and Cardizem at this point. 4. Chronic obstructive pulmonary disease, is stable. I am going to continue his inhaled steroids and bronchodilators. 5. DVT prophylaxis. The patient has a score of 2 on the DVT prophylaxis Risk Assessment Guide and pharmacological prophylaxis is contraindicated at this time due to his upper GI bleed. The patient is going to have SCDs. 6. Code status is full. TIME SPENT: Approximately 55 minutes were spent with the patient interview, medical records review, physical examination to complete the admission; more than half of this time was spent [id number] with the patient in coordination of care. CC: Dr. Rodarte; Dr. Barrera; Dr. Reveles* [id number]/[facility] #: [id number] [facility]
--- NOTE | 2016-07-02 01:15 | CONS ---
CONSULTATION: DATE OF CONSULT: 07/01/16 REASON FOR THE CONSULTATION: Upper GI bleed. NARRATIVE: Mr. Cornell is a 51-year-old gentleman who was hospitalized about 2 months ago for chest pain and found to have coronary artery disease. He underwent a stent placement and was placed on the blood thinner, Effient. He did well, but approximately about 7 to 10 days ago, he noticed his stools become black in color. He became concerned about this and today he felt somewhat weaker and a little bit short of breath. 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 Stool tests were black and tested positive for blood. He has no prior history of GI bleeding. Again, he was placed on FEN, but has not been taking any NSAIDs. He was also on a baby aspirin. PAST MEDICAL HISTORY: Includes: 1. Coronary artery disease. 2. Hypertension. MEDICATIONS: Ambulatory medicines include: 1. Ventolin inhaler as needed. 2. Lipitor. 3. Cardizem. 4. Prinivil. 5. Lopressor. 6. Effient. REVIEW OF SYSTEMS: He denies any abdominal pain, heartburn, rectal bleeding, or change in bowel habits. He did report having had a colonoscopy years ago, which demonstrated a polyp and no other pathology. He states that his may have had peptic ulcer disease. PHYSICAL EXAM: He is a pleasant gentleman. He looks a little bit pale, but in no acute distress. Blood pressure is 134/56, heart rate is 76 and regular. Temperature is 98.5. He is anicteric. Lungs are clear. Cardiac exam reveals a regular rhythm without murmur. Abdomen is soft without tenderness or organomegaly. IMPRESSION: A 51-year-old gentleman recently with coronary disease, on Effient , now presenting with evidence of an upper GI bleed. He seems to be bleeding in a low steady rate given the fact that he has had black stools for 7 to 10 days. He is hemodynamically stable at this point. His Effient is on hold for today. IV Protonix has been prescribed and we will pursue an upper endoscopy tomorrow with better evidence based endoscopically when his anticoagulants can be begun again. This was discussed with the patient. [id number]/[facility] #: [id number] [facility] HOSPITALJaelyn
[2016-07-02 01:27] LABS: Hematocrit 27 % (42-52); Hemoglobin 9.1 g/dl (14.0-18.0)
[2016-07-02] MEDS: Pantoprazole IV* 80 MG in NS 0.9% 250 ML* 250 ML IVPB SCH ×2 (02:21→12:17)
[2016-07-02] MEDS: NS 0.9% 1000 ML* 1,000 ML IV SCH ×3 (05:48→18:20)
[2016-07-02 06:29] LABS: Hematocrit 26 % (42-52); Mean Corpuscular HGB Conc 34 g/dl (31-36); Mean Corpuscular Hemoglobin 33 pg (27-31); Mean Corpuscular Volume 95 fL (80-94); Mean Platelet Volume 8 um3 (7.4-10.4); Red Blood Count 2.75 10^6/ul (4.0-5.4); Red Cell Distribution Width 13 % (10.5-15); White Blood Count 7.2 10^3/ul (3.5-10.8)
[2016-07-02 06:46] LABS: BUN/Creatinine Ratio 23.9 (8-20); Calcium 8.6 mg/dL (8.6-10.3); EGFR African American 117.4 (>60); EGFR Non-African American 91.3 (>60)
--- NOTE | 2016-07-02 08:25 | PN ---
Subjective Date of Service: 07/02/16 Interval History: Patient seen this morning. Reports no complaints. Denies chest pain, abdominal pain. Last BM in ED yesterday was black. Still smoking cigarettes although has been cutting back. Family History: Unchanged from Admission Social History: Unchanged from Admission Past Medical History: Unchanged from Admission Objective Active Medications: Albuterol (Ventolin Hfa Inhaler*) 2 puff INH Q6H PRN Aspirin (Aspirin Low Dose Tab*) 81 mg PO DAILY LAISHA Atorvastatin Calcium (Lipitor*) 80 mg PO 1700 LAISHA Pantoprazole Sodium 80 mg/ (Sodium Chloride) 250 mls @ 25 mls/hr IVPB Q10H LAISHA Sodium Chloride (Ns 0.9% 1000 Ml*) 1,000 mls @ 150 mls/hr IV PER RATE LAISHA Metoprolol Tartrate (Lopressor Tab*) 50 mg PO BID LAISHA Mometasone Furoate/Formoterol Fumar (Dulera 200/5 Mdi*) 2 puff INH BID LAISHA Nicotine (Nicotine Patch 21 Mg/24 Hr*) 1 patch TRANSDERM DAILY@0800 [facility] Nitroglycerin (Nitroglycerin Tab 0.4 Mg*) 0.4 mg SL Q5M PRN Pharmacy Profile Note (Nicotine Patch Removal Note*) 1 note PATCH OFF 2100 LAISHA Vital Signs 07/01/16 07/01/16 07/01/16 17:30 17:41 17:43 Temperature 98.6 F Pulse Rate 78 74 Respiratory 15 15 19 Rate Blood Pressure 122/58 121/62 (mmHg) O2 Sat by Pulse 97 Oximetry 07/01/16 07/01/16 07/01/16 20:00 20:52 21:00 Temperature Pulse Rate 97 71 Respiratory 25 16 17 Rate Blood Pressure 126/69 109/59 (mmHg) O2 Sat by Pulse 95 96 Oximetry 07/02/16 07/02/16 07/02/16 05:00 05:50 06:00 Temperature Pulse Rate 53 62 Respiratory 14 17 17 Rate Blood Pressure 100/64 118/47 (mmHg) O2 Sat by Pulse 94 96 Oximetry Oxygen Devices in Use Now: None Appearance: Middle-aged, M, laying in bed in NAD Eyes: No Scleral Icterus Ears/Nose/Mouth/Throat: Mucous Membranes Moist Neck: NL Appearance and Movements; NL JVP Respiratory: Symmetrical Chest Expansion and Respiratory Effort, - - Mild wheezing diffusely Cardiovascular: NL Sounds; No Murmurs; No JVD, RRR Abdominal: NL Sounds; No Tenderness; No Distention Lymphatic: No Cervical Adenopathy Extremities: No Edema Skin: No Rash or Ulcers Neurological: Alert and Oriented x 3 Result Diagrams: 07/02/16 06:00 07/02/16 06:00 Additional Lab and Data: Assess/Plan/Problems-Billing Assessment: Acute blood loss anemia, melena likely 2/2 UGIB in a 51 yo M with hx of HTN, HLD , COPD, recent NSTEMI (04/2016) on ASA/Prasugrel - Patient Problems (1) Acute blood loss anemia Current Visit: Yes Comment: 2/2 GIB. Apprecaite GI assistance. Plan for EGD today. Continue to monitor Hb and transfuse for Hb < 8. Continue protonix gtt for now. Holding Prasugrel. (2) CAD (coronary artery disease) Current Visit: Yes Comment: recent NSTEMI, HTN. Continue ASA alone for now. Continue statin and Metoprolol (with hold parameters). Continue to hold Lisinopril and Cardizem. (3) COPD (chronic obstructive pulmonary disease) Current Visit: No Comment: Dulera, albuterol PRN (4) DVT prophylaxis Current Visit: No Comment: SCDs Status and Disposition: Inpatient for GI bleed
[2016-07-02] MEDS: Metoprolol Tartrate TAB* 50 mg PO SCH ×2 (09:27→20:28)
[2016-07-02] MEDS: Nicotine PATCH 21 MG/24 HR* PATCH TRANSDERM SCH (09:28)
[2016-07-02] MEDS: Aspirin Low Dose CHEW TAB* 81 MG PO SCH (09:28)
[2016-07-02] MEDS: Mometasone/Formoter 200/5 MDI INH SCH ×2 (09:28→21:24)
[2016-07-02 14:19] LABS: Hematocrit 25 % (42-52); Hemoglobin 8.7 g/dl (14.0-18.0); Mean Corpuscular HGB Conc 34 g/dl (31-36); Mean Corpuscular Hemoglobin 33 pg (27-31); Mean Corpuscular Volume 95 fL (80-94); Mean Platelet Volume 7 um3 (7.4-10.4); Red Blood Count 2.66 10^6/ul (4.0-5.4); Red Cell Distribution Width 13 % (10.5-15); White Blood Count 6.1 10^3/ul (3.5-10.8)
[2016-07-02] MEDS ORDERED: Midazolam* 1 MG/ML 10 ML VIAL (10 MG) ONE (16:43)
[2016-07-02] MEDS ORDERED: Meperidine SYRINGE* 50 MG/ML ONE (16:43)
[2016-07-02] MEDS ORDERED: Atorvastatin* 80 MG TAB PO SCH (17:00)
[2016-07-02] MEDS ORDERED: Nicotine Patch Removal NOTE PATCH OFF SCH (21:00)
[2016-07-03] MEDS: Mometasone/Formoter 200/5 MDI INH SCH ×2 (00:05→07:54)
[2016-07-03] MEDS: Pantoprazole IV* 80 MG in NS 0.9% 250 ML* 250 ML IVPB SCH (00:05)
[2016-07-03] MEDS: NS 0.9% 1000 ML* 1,000 ML IV SCH (02:30)
[2016-07-03 05:36] LABS: Hematocrit 25 % (42-52); Hemoglobin 8.5 g/dl (14.0-18.0); Mean Corpuscular HGB Conc 34 g/dl (31-36); Mean Corpuscular Hemoglobin 32 pg (27-31); Mean Corpuscular Volume 95 fL (80-94); Mean Platelet Volume 7 um3 (7.4-10.4); Red Blood Count 2.64 10^6/ul (4.0-5.4); Red Cell Distribution Width 13 % (10.5-15); White Blood Count 6.1 10^3/ul (3.5-10.8)
[2016-07-03 08:11] VITALS: BP 128/70
[2016-07-03] MEDS ORDERED: NS 0.9% IVPB SCH (09:00)
[2016-07-03] MEDS ORDERED: PANTOPRAZOLE IVPB SCH (09:00)
[2016-07-03] MEDS: Aspirin Low Dose CHEW TAB* 81 MG PO SCH (09:45)
[2016-07-03] MEDS: Nicotine PATCH 21 MG/24 HR* PATCH TRANSDERM SCH (09:45)
[2016-07-03] MEDS: Metoprolol Tartrate TAB* 50 mg PO SCH (09:45)
--- NOTE | 2016-07-03 10:11 | DCNOTE ---
Feeling well this morning. No abdominal pain or chest pain. Tolerating food with no issues. No further melena but no BM yet. On exam, RRR, s1 and s2 present, no m/g/r, abd soft, NTND, BS+, no LE edema EGD shows no clear ulcer, some areas of erythema. Will plan to continue oral PPI BID. Dr. Islas feels patient can restart Effient on 07/04. Will need to follow-up closely with Dr. Rodarte.
--- NOTE | 2016-07-03 10:20 | PRO ---
DATE: 07/02/16 REFERRING PHYSICIAN: Marvel Rodarte PROCEDURE: Upper gastrointestinal endoscopy and gastric biopsy for MIKAEL test. 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 He has not had any dizziness or weakness. There has not been any acid indigestion or vomiting. He does not take any iron supplements, and has not had Pepto-Bismol in several months. He is familiar with it turning the stool dark. He has not had any NSAIDs (specific names reviewed) since having the stent placed, and their use was quite rare even before. He has not been treated chronically for acid indigestion or heartburn. ENDOSCOPIST: Dr Islas MEDICATION: Midazolam 5, meperidine 37.5. FINDINGS: He is a healthy-appearing man with long curly hair, in no overt distress. EGD: Larynx - symmetric, limited views. Esophagus - easily entered, and the mucosa is normal in the upper, mid, and lower esophagus with the EG junction at 41, snug, and with no hiatal hernia or erosions or chronic change. Stomach- generally normal mucosa in the cardia, fundus, body, and antrum. The rugal pattern appeared normal and there were no erosions or blood Duodenum - the pylorus and proximal bulb were normal. The distal bulb had some edematous folds with erythema. Findings were mild but definite. Turning to the second portion of the duodenum, the pinpoint and somewhat splotchy erythema is a little more prominent. There appeared to be a couple of very small mucosal breaks. There really were not any ulcers. There was no bleeding. The second and third portion of the duodenum appeared normal. There was no blood there. During withdrawal, MIKAEL test taken mid gastric body. IMPRESSION: Mild duodenitis apex of the duodenal bulb - Helicobacter is being tested for, though the most likely explanation is that this is aspirin related as there is no completely innocuous dose of aspirin as regards upper GI mucosal irritation. Nonetheless, checking for Helicobacter a second way as an outpatient later might be advisable. For the moment, he will remain on his PPI drip and then later go to twice a day therapy for 7 to 10 days and then once a day probably for the duration of his antiplatelet treatment. Some prophylaxis is a consideration while on ASA 81mg only. Addendum: Clotest negative [id number]/[facility] #: [id number] [facility]
[2016-07-03 11:15] LABS: BUN/Creatinine Ratio 12.6 (8-20); Calcium 8.5 mg/dL (8.6-10.3); EGFR Non-African American 92.5 (>60); Magnesium 1.9 mg/dL (1.9-2.7)
--- NOTE | 2016-07-04 03:42 | DS ---
DISCHARGE SUMMARY: DATE OF ADMISSION: 07/01/16 DATE OF DISCHARGE: 07/03/16 PRIMARY CARE PHYSICIAN: Dr. Marvel Rodarte. PRINCIPAL DISCHARGE DIAGNOSIS: Acute blood loss anemia secondary to upper GI bleed. SECONDARY DIAGNOSES: 1. Hypertension. 2. Hyperlipidemia. 3. Tobacco abuse. 4. Recent non-ST elevation myocardial infarction in April 2016. 5. Osteoarthritis. CONSULTANTS DURING HOSPITALIZATION: Dr. Jas Islas, Gastroenterology. DISCHARGE MEDICATION REGIMEN: 1. Atorvastatin 80 mg by mouth daily. 2. Aspirin 81 mg by mouth daily. 3. Albuterol 2 puffs inhaled every 6 hours as needed for shortness of breath or wheezing. 4. Nicotine patch 1 patch transdermal daily 21 mg. 5. Metoprolol tartrate 25 mg by mouth 2 times daily. 6. Fluticasone/salmeterol 1 puff inhaled 2 times daily. 7. Bismuth subsalicylate 525 mg by mouth daily as needed for indigestion. 8. Effient 10 mg by mouth daily to begin 07/04/16. 9. Omeprazole 20 mg by mouth 2 times daily. 10. Nitroglycerin 0.4 mg sublingual every 5 minutes as needed for chest pain. STUDIES DONE DURING HOSPITALIZATION: Chest x-ray, impression: Appearance of chronic obstructive pulmonary disease without radiographically apparent acute cardiopulmonary abnormalities. Upper endoscopy, impression: Mild duodenitis, apex of the duodenal bulb. Some splotchy erythema in the second part of the duodenum. HISTORY OF PRESENT ILLNESS AND HOSPITAL SUMMARY: Please see the full history and physical by Dr. Kaye for full details. Briefly, Mr. Cornell is a 51-year- old male with a past medical history above including recent NSTEMI and drug- eluting stent placed in April 2016 who presents to the hospital with a little over a week of black stools. He saw his PCP who heard this and sent him to the hospital for evaluation. He was found to be anemic with an initial hemoglobin of 10.8 on admission that was down from 13 to 14 from his previous hospitalization. The patient was started on a Protonix drip. His Effient was initially held. His aspirin was continued. The patient was also somewhat hypotensive. So, his lisinopril and Cardizem were held. His metoprolol was started at half dose. The patient was evaluated by Gastroenterology and underwent an upper endoscopy. Findings as above which do not show any clear evidence of ulcers; however, some scattered areas of erythema. Dr. Islas felt the patient's aspirin may be to blame for some GI erosion. Recommended PPI twice daily and recommended restarting the patient's Effient on 07/04/16. As the patient's blood pressures remained relatively soft throughout this admission, he will be discharged on half dose of his previous metoprolol. His lisinopril and diltiazem will be held on discharge and can be restarted by his PCP when felt appropriate. The patient will need to follow up with GI as an outpatient as well. TIME SPENT: Total time spent on this discharge 45 minutes. This is a summary of the hospitalization. Please see the full medical record for further details. CC: Dr. Marvel Rodarte; Dr. Jas Islas, Gastroenterology* [id number]/[facility] #: [id number] MTDD
== END 2016-07-03 13:05 | disposition home or self-care (01) | DRG 663 ==
LOC: ED 15:05 → ICU 17:06 → MEDTELE 07-02 17:44
PROVIDERS: ADMIT Internal Medicine; ATTEND Hospitalist
PROC: 0DB68ZX Excision of Stomach, Via Natural or Artificial Opening Endoscopic, Diagnostic (ICD-10-PCS; principal; 2016-07-02)
DX: D62 Acute posthemorrhagic anemia (principal); I95.9 Hypotension, unspecified; I11.9 Hypertensive heart disease without heart failure; K92.2 Gastrointestinal hemorrhage, unspecified; E78.5 Hyperlipidemia, unspecified; F17.210 Nicotine dependence, cigarettes, uncomplicated; M19.90 Unspecified osteoarthritis, unspecified site; I25.2 Old myocardial infarction; J44.9 Chronic obstructive pulmonary disease, unspecified; I25.10 Atherosclerotic heart disease of native coronary artery without angina pectoris; Z95.5 Presence of coronary angioplasty implant and graft; Z96.643 Presence of artificial hip joint, bilateral; Z79.82 Long term (current) use of aspirin; Z79.899 Other long term (current) drug therapy; Z88.8 Allergy status to other drugs, medicaments and biological substances
CPT/HCPCS: 36415; 71020; 80048; 80053; 82270; 83735; 85014; 85018; 85025; 85610; 85730; 86850; 86900; 86901; 87077; 93005; 94640; 99406; A9270-GY; J2250